=== PATIENT | female | born 1970 | race Caucasian/White ===

== ENCOUNTER 2023-03-28 14:00 | Outpatient (RCR) | payer OTHER, SELFPAY | END 2023-06-20 13:48 | disposition home or self-care (01) | LOC: HO.PT 14:00 | PROVIDERS: PCP Family Medicine; Visit Provider Podiatrist | DX: M76.822 Posterior tibial tendinitis, left leg (principal) | CPT/HCPCS: 97035; 97110; 97161 ==

== ENCOUNTER 2023-04-08 06:29 | Inpatient (IN) | payer OTHER, SELFPAY ==
[2023-04-08] VITALS (7 sets, daily range): BP systolic 109–132; BP diastolic 62–83; PULSE 86–102; RESP 16–20; TEMP 36.4–37.2; O2SAT 87–95; BMI 30.1; BMI 29.9
--- NOTE | ~2023-04-08 | US_ITS ---
EXAMINATION: US VENOUS ULTRASOUND WITH DOPPLER LOWER EXTREMITY, BILATERAL CLINICAL INFORMATION: Lower extremity edema and swelling. COMPARISON: None available. TECHNIQUE: Ultrasound of the deep veins is performed from the hip to the calf with compression sonography and color and pulse Doppler assessment. Spectral analysis with color-flow imaging is performed. FINDINGS: RIGHT: There is normal venous compression and respiratory variation and augmented flow. The visualized common femoral vein, superficial femoral vein, profunda femoral vein, popliteal vein, and the trifurcation region shows no evidence of deep venous thrombosis. No right popliteal cyst. The subcutaneous soft tissues are unremarkable. LEFT: Positive partially occlusive thrombus is seen distally in the left popliteal vein. Occlusive thrombus is seen in the left posterior tibial vein. The left peroneal vein was suboptimally visualized. The left common femoral, profunda femoral and femoral veins are patent. The proximal segment of the left popliteal vein is patent as well. No left popliteal cyst. The subcutaneous soft tissues are unremarkable. US/US venous duplex LE BI IMPRESSION: 1. Positive deep venous thrombosis in the distal left popliteal and posterior tibial veins. 2. No evidence for deep venous thrombosis in the visualized veins of the right lower extremity.
--- NOTE | ~2023-04-08 | XR_ITS ---
EXAMINATION: XR CHEST CLINICAL INFORMATION: Shortness of breath COMPARISON: None available. TECHNIQUE: Frontal portable view of the chest was obtained. FINDINGS: Devices overlie the patient. The cardiac size is within normal limits. No mediastinal or hilar mass. The central vessels are prominent but distinct. There is no edema consolidation or major zone of atelectasis. No pleural fluid or pneumothorax No suspicious focal bony lesion. XR/XR chest 1V IMPRESSION: No pneumonia or edema.
--- NOTE | ~2023-04-08 | CT_ITS ---
EXAMINATION: CT ANGIOGRAM OF THE CHEST WITH AND WITHOUT CONTRAST (CT PULMONARY ANGIOGRAM FOR PE) CLINICAL INFORMATION: Positive D-dimer, shortness of breath. COMPARISON: None available. TECHNIQUE: Prior to contrast administration, noncontrast localization images were obtained. Subsequently, multidetector volumetric imaging was performed from the thoracic inlet to below the diaphragms following the administration of 80 mL Omnipaque 350 intravenous contrast. No contrast reaction reported Sagittal, coronal, and MIP oblique sagittal reformatted images were obtained on the CT workstation, uploaded to PACS, and reviewed. This CT examination was performed using dose optimization techniques as appropriate, variously including the following: *Automated exposure control *Adjustment of mA and/or kV according to patient size (this includes techniques or standardized protocols for targeted exams where dose is matched to indication/reason for exam; i.e. extremities or head) *Use of iterative reconstruction technique Total exam dose-length product 264 mGy-cm FINDINGS: QUALITY OF STUDY/CONTRAST BOLUS: Satisfactory. PULMONARY ARTERIES: Multiple large filling defects are seen extending from the levels of the distal main pulmonary arteries into segmental and subsegmental branches most pronounced in the right lower lobe. THORACIC AORTA: No aneurysm. LUNGS/PLEURA/AIRWAYS: No focal consolidation, nodules or masses. MEDIASTINUM: Normal heart size. No pericardial effusion. No hilar or mediastinal lymphadenopathy. No evidence of septal bowing or right heart strain. CORONARY ARTERY CALCIFICATION: None visualized on this study. CHEST WALL/AXILLA: No axillary or internal mammary lymphadenopathy. OSSEOUS STRUCTURES: No acute or suspicious osseous abnormality. UPPER ABDOMEN: Unremarkable. No reflux of contrast into the hepatic veins to suggest elevated right heart pressures. CT/CT angio chest PE protocol IMPRESSION: 1. Multiple large pulmonary emboli bilaterally, right greater than left. VTE: positive
[2023-04-08 07:42] LABS: MANUAL DIFF FLAG NO
[2023-04-08 07:43] LABS: Basophils Percent Auto 0.4 % (0-2); Eosinophils Absolute Auto 0.1 X10*3/uL (0.0-0.4); Eosinophils Percent Auto 1.3 % (0-4); Hemoglobin 13.7 g/dl (12.0-16.0); Imm Gran Abs Auto 0.02 X10*3/uL (0.00-0.03); Imm Gran Pct Auto 0.2 % (0.0-0.4); Lymphocytes Absolute Auto 2.2 X10*3/uL (1.2-4.9); Lymphocytes Percent Auto 22.8 % (20-40); Mean Corpuscular HGB Conc 34.3 g/dl (31.0-35.0); Mean Corpuscular Hemoglobin 34.3 pg (27.0-33.0); Mean Platelet Volume 9.9 fL (9.4-12.3); Monocytes Absolute Auto 0.7 X10*3/uL (0.1-1.2); Neutrophils Absolute Auto 6.5 x10*3/uL (2.0-8.3); Neutrophils Percent Auto 68.3 % (45-73); Platelet Count 260 X10*3/uL (160-400); Red Cell Distribution Width 11.9 % (11.0-16.0); White Blood Count 9.6 X10*3/uL (4.8-10.8)
[2023-04-08 07:49] LABS: D Dimer High Sensitivity 2955 NG/ML
[2023-04-08 07:57] LABS: COVID-19 Test Negative (Negative); IDNOW Serial# 08D9AD1C
[2023-04-08 07:58] LABS: Alanine Aminotransferase 13 U/L (0-31); Albumin Level 3.6 g/dL (3.5-5.0); Alkaline Phosphatase 74 U/L (39-117); Anion Gap 14 (12-20); Aspartate Amino Transferase 15 U/L (5-31); Bilirubin Total 0.4 mg/dL (0.0-1.0); Blood Urea Nitrogen 12 mg/dL (9-16); Calcium 8.9 mg/dL (8.4-10.2); Carbon Dioxide 22 mmol/L (22-29); Chloride 108 mmol/L (96-108); Creatinine Clr Calc Pharmacy 80.8; Estimated Glomerular Filt Rate > 60; Glucose Random 104 mg/dL (60-115); Magnesium 2.1 mg/dL (1.6-2.6); Potassium 4.2 mmol/L (3.3-5.1); Sodium 140 mmol/L (135-145); Total Protein 6.9 g/dL (6.5-8.0)
[2023-04-08 08:14] LABS: Troponin-I High Sensitivity 74.5 ng/L (<3.5-17.0)
--- NOTE | 2023-04-08 08:17 | ED_ITS ---
HPI - General Adult General Chief complaint: Dyspnea Stated complaint: sob Time Seen by Provider: 04/08/23 06:43 Source: patient Mode of arrival: ambulatory Limitations: no limitations History of Present Illness HPI narrative: 52-year-old female presents with shortness of breath with exertion, chest pressure for the past 3 days worsening. Patient reports that each time she has to ambulate or exert herself she feels like she is running a marathon. Patient reports that this is never happened to her before. Reports a substernal chest pressure, nonradiating, says it is more an aching pain. Patient reports she has trouble catching her breath even with simple tasks such as going up the stairs, reports about a week ago she had an upper respiratory infection and was seen by her primary care provider. And on Sunday, patient had a normal chest x-ray. Patient reports she used to be a former smoker however no longer smoking, she is prescribed hormones by her primary care provider, no recent travel or lower extremity edema, no history of malignancy. Related Data Home Medications Medication Instructions Recorded Confirmed calcium carbonate 600 mg-vitamin 1 tab PO DAILY 04/08/23 04/08/23 D3 5 mcg (200 unit) tablet desogestrel 0.15 mg-ethinyl 1 tab PO DAILY 04/08/23 04/08/23 estradiol 0.03 mg tablet (Apri) multivitamin 1 tab PO DAILY 04/08/23 04/08/23 Allergies Allergy/AdvReac Type Severity Reaction Status Date / Time No Known Allergies Allergy Unverified 07/15/20 16:28 [No Known Allergies*] Review of Systems Review of Systems: Constitutional : No Weight loss, No Fever, No Chills, No Fatigue, No Malaise ENT/Mouth : No sore throat, No Rhinorrhea Eyes: No Eye Pain, No Swelling, No Redness Cardiovascular : + Chest Pain, + SOB, + Dyspnea on Exertion, No Orthopnea, No Edema, No Palpitations Respiratory : No Cough, No Sputum, No Wheezing Gastrointestinal : No Nausea, No Vomiting, No Diarrhea, No Constipation, No abdominal Pain, No Hematochezia, No Melena Genitourinary : No Dysuria, No Urinary Frequency, No Hematuria, Musculoskeletal : No joint pain, No Myalgias, No Joint Swelling Skin : No Skin Lesions, No rash Neuro : No Weakness, No Numbness, No Dizziness, No Headache Psych : No Anxiety/Panic, No Depression All other systems reviewed and are negative Yes all other systems are reviewed and are negative [facility] Past Medical History Attestation statement: The following information was validated with the patient. Source: old records reviewed and nursing notes reviewed Social History Social History Alcohol intake: never Smoked in Last 30 Days: No Use of substances other than those prescribed or required for medical reasons: No Advance Directives: No Patient : No Physical Exam ED Vital Signs: Vital Signs - 24 hr 04/08/23 06:46 04/08/23 07:52 04/08/23 09:56 Temperature 98.5 F 98.3 F Pulse Rate 102 H 89 Respiratory Rate 20 16 Blood Pressure 109/83 109/69 Pulse Oximetry 93 93 87 L Oxygen Delivery Method Room Air Room Air Room Air BMI result Body Mass Index 29.9 vss Appearance: Alert.? Oriented X3.? No acute distress.? Head: Normocephalic, atraumatic, no step-offs or deformities Eyes: Pupils equal, round and reactive to light.? ENT: Pharynx normal.? Neck: Normal inspection.? Neck supple.? CVS: Normal heart rate and rhythm.? Pulses normal.? Respiratory: No respiratory distress.? Breath sounds normal.? Abdomen: Soft and nontender.? Skin: Skin warm and dry.? Normal skin color.? Normal skin turgor.? Extremities: No lower extremity edema.? No calf ttp, negative Dmitry bilaterally. 5/5 strength to bilateral upper and lower extremities Neuro: Oriented X 3.? No motor deficit.? No sensory deficit. CN 2-12 intact Course Reevaluation(s) Reevaluation #1: CBC appears to be within normal limits. Chemistry with no acute findings requiring intervention. Troponin 74.5, EKG nonischemic, 2nd troponin ordered. D-dimer markedly elevated, CTA ordered, concerned for blood clot. UA without infection. COVID negative. Time: 09:08 Reevaluation #2: CT of chest with multiple large pulmonary emboli bilaterally right greater than left. VTE positive. Ambulatory oxygen saturation 87% on room air. Patient complaining of shortness of breath with ambulation. Will start patient on hepa rin. Time: 09:58 Reevaluation #3: Patient will be admitted by the hospitalist Dr. Costa. US b/l LE duplex pending. Additional Reevaluation(s): Positive venous duplex left lower extremity. Medications Administered Discontinued Medications Generic Name Dose Route Start Last Admin Trade Name Naren PRN Reason Stop Dose Admin Iohexol 100 ml 04/08/23 08:52 04/08/23 08:53 Iohexol 350 Mg/Ml 100 Ml Infus..Btl IV 04/08/23 08:53 100 ml ONCE ONE Administration Medical Decision Making Medical Decision Making [facility] Narrative: 0737 52-year-old female presents for evaluation chest pressure and shortness of breath on exertion going on past 3 days worsening. Physical examination benign. Negative Dmitry bilaterally. Vital signs stable initially on my exam patient is slightly tachycardic. Concerns for possible pulmonary embolism, angina. I do not suspect dissection, CHF, pneumonia, ACS. Unlikely endocarditis, myocarditis or pericarditis. Plan labs, imaging, viral testing. Differential Diagnosis Differential Diagnoses: The differential diagnosis associated with the presentation includes Concerns for possible pulmonary embolism, less likely ACS. I do not suspect dissection, CHF, pneumonia. Unlikely endocarditis, myocarditis or pericarditis. Admission/Observation Consideration of admission/observation: Escalation of care including admission/observation considered Lab Data [facility] Lab Attestation statement: I reviewed the patient's lab results. 04/08/23 07:37 04/08/23 07:37 Labs: Lab Results 04/08/23 04/08/23 04/08/23 Range/Units 07:37 07:37 07:37 WBC 9.6 (4.8-10.8) X10*3/uL RBC 4.00 L (4.20-5.50) X10*6/uL Hgb 13.7 (12.0-16.0) g/dl Hct 40.0 (37.0-47.0) % MCV 100.0 H (80.0-98.0) fL MCH 34.3 H (27.0-33.0) pg MCHC 34.3 (31.0-35.0) g/dl RDW 11.9 (11.0-16.0) % Plt Count 260 (160-400) X10*3/uL MPV 9.9 (9.4-12.3) fL Immature Gran % (Auto) 0.2 (0.0-0.4) % Neut % (Auto) 68.3 (45-73) % Lymph % (Auto) 22.8 (20-40) % [place] % (Auto) 7.0 (2-11) % Eos % (Auto) 1.3 (0-4) % Baso % (Auto) 0.4 (0-2) % Lymph # (Auto) 2.2 (1.2-4.9) X10*3/uL [place] # (Auto) 0.7 (0.1-1.2) X10*3/uL Eos # (Auto) 0.1 (0.0-0.4) X10*3/uL Baso # (Auto) 0.0 (0.0-0.2) X10*3/uL Abs Immat Gran (auto) 0.02 (0.00-0.03) X10*3/uL Absolute Neuts (auto) 6.5 (2.0-8.3) x10*3/uL Absolute Nucleated RBC 0.000 (0.0-0.012) X10*3/uL Nucleated RBC % (auto) 0.0 (0.0-0.2) /100WBC PT (10.0-13.1) SEC INR (0.9-1.1) D-Dimer High Sensitivty NG/ML Sodium (135-145) mmol/L Potassium (3.3-5.1) mmol/L Chloride (96-108) mmol/L Carbon Dioxide (22-29) mmol/L Anion Gap (12-20) BUN (9-16) mg/dL Creatinine (0.5-1.4) mg/dL Estim Creat Clear Calc Estimated GFR Random Glucose (60-115) mg/dL Calcium (8.4-10.2) mg/dL Magnesium (1.6-2.6) mg/dL Total Bilirubin (0.0-1.0) mg/dL AST (5-31) U/L ALT (0-31) U/L Alkaline Phosphatase (39-117) U/L Troponin I High Sens 74.5 H* (<3.5-17.0) ng/L B-Natriuretic Peptide 260 H (<100) pg/mL Total Protein (6.5-8.0) g/dL Albumin (3.5-5.0) g/dL Beta HCG, Quant mIU/mL Urine Color Urine Appearance Urine pH (5.0-9.0) Ur Specific [place] (1.005-1.025) Urine Protein (Neg-Trace) mg/dL Urine Glucose (UA) (Negative) mg/dL Urine Ketones (Negative) mg/dL Urine Blood (Negative) Urine Nitrite (Negative) Ur Leukocyte Esterase (Negative) Urine RBC (0-2) /HPF Urine WBC (0-5) /HPF Ur Squamous Epith Cells (0-2) /HPF Urine Bacteria (None Seen) Hyaline Casts (0-2) /LPF COVID-19 (JACKELINE) (Negative) COVID-19 Clin Com 04/08/23 04/08/23 04/08/23 Range/Units 07:37 07:37 07:37 WBC (4.8-10.8) X10*3/uL RBC (4.20-5.50) X10*6/uL Hgb (12.0-16.0) g/dl Hct (37.0-47.0) % MCV (80.0-98.0) fL MCH (27.0-33.0) pg MCHC (31.0-35.0) g/dl RDW (11.0-16.0) % Plt Count (160-400) X10*3/uL MPV (9.4-12.3) fL Immature Gran % (Auto) (0.0-0.4) % Neut % (Auto) (45-73) % Lymph % (Auto) (20-40) % [place] % (Auto) (2-11) % Eos % (Auto) (0-4) % Baso % (Auto) (0-2) % Lymph # (Auto) (1.2-4.9) X10*3/uL [place] # (Auto) (0.1-1.2) X10*3/uL Eos # (Auto) (0.0-0.4) X10*3/uL Baso # (Auto) (0.0-0.2) X10*3/uL Abs Immat Gran (auto) (0.00-0.03) X10*3/uL Absolute Neuts (auto) (2.0-8.3) x10*3/uL Absolute Nucleated RBC (0.0-0.012) X10*3/uL Nucleated RBC % (auto) (0.0-0.2) /100WBC PT (10.0-13.1) SEC INR (0.9-1.1) D-Dimer High Sensitivty 2955 NG/ML Sodium 140 (135-145) mmol/L Potassium 4.2 (3.3-5.1) mmol/L Chloride 108 (96-108) mmol/L Carbon Dioxide 22 (22-29) mmol/L Anion Gap 14 (12-20) BUN 12 (9-16) mg/dL Creatinine 0.82 (0.5-1.4) mg/dL Estim Creat Clear Calc 80.8 Estimated GFR > 60 Random Glucose 104 (60-115) mg/dL Calcium 8.9 (8.4-10.2) mg/dL Magnesium 2.1 (1.6-2.6) mg/dL Total Bilirubin 0.4 (0.0-1.0) mg/dL AST 15 (5-31) U/L ALT 13 (0-31) U/L Alkaline Phosphatase 74 (39-117) U/L Troponin I High Sens (<3.5-17.0) ng/L B-Natriuretic Peptide (<100) pg/mL Total Protein 6.9 (6.5-8.0) g/dL Albumin 3.6 (3.5-5.0) g/dL Beta HCG, Quant < 2 mIU/mL Urine Color Urine Appearance Urine pH (5.0-9.0) Ur Specific [place] (1.005-1.025) Urine Protein (Neg-Trace) mg/dL Urine Glucose (UA) (Negative) mg/dL Urine Ketones (Negative) mg/dL Urine Blood (Negative) Urine Nitrite (Negative) Ur Leukocyte Esterase (Negative) Urine RBC (0-2) /HPF Urine WBC (0-5) /HPF Ur Squamous Epith Cells (0-2) /HPF Urine Bacteria (None Seen) Hyaline Casts (0-2) /LPF COVID-19 (JACKELINE) Negative (Negative) COVID-19 Clin Com See Note 04/08/23 04/08/23 Range/Units 08:14 08:15 WBC (4.8-10.8) X10*3/uL RBC (4.20-5.50) X10*6/uL Hgb (12.0-16.0) g/dl Hct (37.0-47.0) % MCV (80.0-98.0) fL MCH (27.0-33.0) pg MCHC (31.0-35.0) g/dl RDW (11.0-16.0) % Plt Count (160-400) X10*3/uL MPV (9.4-12.3) fL Immature Gran % (Auto) (0.0-0.4) % Neut % (Auto) (45-73) % Lymph % (Auto) (20-40) % [place] % (Auto) (2-11) % Eos % (Auto) (0-4) % Baso % (Auto) (0-2) % Lymph # (Auto) (1.2-4.9) X10*3/uL [place] # (Auto) (0.1-1.2) X10*3/uL Eos # (Auto) (0.0-0.4) X10*3/uL Baso # (Auto) (0.0-0.2) X10*3/uL Abs Immat Gran (auto) (0.00-0.03) X10*3/uL Absolute Neuts (auto) (2.0-8.3) x10*3/uL Absolute Nucleated RBC (0.0-0.012) X10*3/uL Nucleated RBC % (auto) (0.0-0.2) /100WBC PT 11.0 (10.0-13.1) SEC INR 1.0 (0.9-1.1) D-Dimer High Sensitivty NG/ML Sodium (135-145) mmol/L Potassium (3.3-5.1) mmol/L Chloride (96-108) mmol/L Carbon Dioxide (22-29) mmol/L Anion Gap (12-20) BUN (9-16) mg/dL Creatinine (0.5-1.4) mg/dL Estim Creat Clear Calc Estimated GFR Random Glucose (60-115) mg/dL Calcium (8.4-10.2) mg/dL Magnesium (1.6-2.6) mg/dL Total Bilirubin (0.0-1.0) mg/dL AST (5-31) U/L ALT (0-31) U/L Alkaline Phosphatase (39-117) U/L Troponin I High Sens (<3.5-17.0) ng/L B-Natriuretic Peptide (<100) pg/mL Total Protein (6.5-8.0) g/dL Albumin (3.5-5.0) g/dL Beta HCG, Quant mIU/mL Urine Color Yellow Urine Appearance Clear Urine pH 6.5 (5.0-9.0) Ur Specific [place] 1.020 (1.005-1.025) Urine Protein Negative (Neg-Trace) mg/dL Urine Glucose (UA) Negative (Negative) mg/dL Urine Ketones Trace (Negative) mg/dL Urine Blood Small (1+) H (Negative) Urine Nitrite Negative (Negative) Ur Leukocyte Esterase Negative (Negative) Urine RBC 11-20 H (0-2) /HPF Urine WBC 0-5 (0-5) /HPF Ur Squamous Epith Cells 3-5 (0-2) /HPF Urine Bacteria None Seen (None Seen) Hyaline Casts 0-2 (0-2) /LPF COVID-19 (JACKELINE) (Negative) COVID-19 Clin Com Independent Interpretation I performed an independent interpretation of an: Plain X-Ray (XR/XR chest 1V IMPRESSION: No pneumonia or edema. ) and CT Scan (CT/CT angio chest PE protocol IMPRESSION: 1. Multiple large pulmonary emboli bilaterally, right greater than left. VTE: positive) Radiology Impression Discussion of test interpretation with radiology: I have reviewed the radiologist's reading. Core Measures AMI core measures followed: Yes Measure exclusions: not indicated Critical Care Time Critical Care Time Critical Care Time: Yes Total Critical Care Time: 35 Attestation: I attest to this time spent taking care of the patient, obtaining history, physical, reviewing labs, imaging, speaking to my attending Discharge Plan Discharge Clinical Impression: Pulmonary embolism, DVT (deep venous thrombosis) Patient Disposition: Still a Patient
[2023-04-08 08:21] LABS: Appearance Urine Clear; Color Urine Yellow; Glucose Urine UA Negative (Negative); Leukocyte Esterase Urine Negative (Negative); Nitrite Urine Negative (Negative); PH 6.5 (5.0-9.0); UMIC TRIGGER UACC YES; Urine Blood Small (1+) (Negative); Urine Ketones Trace mg/dL (Negative); Urine Protein Negative (Neg-Trace)
[2023-04-08 08:24] LABS: Bacteria Urine None Seen (None Seen); Hyaline Casts Urine 0-2 /LPF (0-2); WBC Urine 0-5 /HPF (0-5)
[2023-04-08 08:27] LABS: HCG Quantitative < 2 mIU/mL
[2023-04-08] MEDS: iohexoL 350 MG/ML 100 ML INFUS..BTL IV (08:53)
--- NOTE | 2023-04-08 10:10 | PHA.MEDREC ---
Pharmacy Consult ? Medication Reconciliation Pharmacy has completed the medication reconciliation. spoke with patient and verified her medications
[2023-04-08 10:36] LABS: B Type Natriuretic Peptide 260 pg/mL (<100)
--- NOTE | 2023-04-08 10:42 | MHC.CM.PN ---
PATIENT IS FULLY INDEPENDENT NO DME OR VNA SHE IS QUITE ACTIVE. PATIENT DROVE SELF HERE SPOUSE IN ROOM CASE MANAGEMENT WILL ADDRESS HCP WHEN APPROPRIATE. NO SERVICES ANTICPATED AT [facility]
--- NOTE | 2023-04-08 10:48 | P.HPHOSP_ITS ---
History of Present Illness Date of Service: 04/08/23 Chief Complaint: Shortness of Breath 52-year-old female on estrogen for post-menopausal symptoms who presents with Dyspnea worse with exertion. About a week ago, she suffered from what appeared to be URI and saw PCP who did chest x-ray that was normal. Unfortunately, she continued to have symptoms of shortness of breath that seem to have become more pronounced, especially with exertion; ambulating feels as if she is running a marathon, and even doing simple task have become more burdensome; she is normally very active and exercise regularly. She has no cough, fever, chills, or recent long trips. She has noticed episodes of tachycardia on her Apple watch. Workup in ED with CT of the chest revealed Multiple large pulmonary emboli bilaterally, right greater than left. and bilateral Lower extremity US shows Positive deep venous thrombosis in the distal left popliteal and posterior tibial veins. She is hemodynamically stable BP 112/76, HR 86; oxygen saturation is normal on room air but dropped to 87% upon ambulation. She's breathing easy. She's started on IV heparin. There is no personal or family history of VTE Review of Systems Review of Systems: Gen: no fever Resp: + sob, no cough CV: no chest, no BARR, no leg edema, no leg GI: No n/v, no abd pain Neuro: No confusion Yes all other systems are reviewed and are negative PMFSH Pertinent family history: No history of VTE Social History Household Members: Family Housing: House Do you presently have visiting nurse or other home services: No Alcohol intake: never Patient Tobacco Use Status: Never used Tobacco Smoked in Last 30 Days: No Use of substances other than those prescribed or required for medical reasons: No Currently Displaying Signs/Symptoms of Drug Intoxication Withdrawal: No Have you been hit, kicked, punched, or otherwise hurt by someone within the past year? If so, by whom?: No Advance Directives: No Do you have thoughts of harming others: None Do you have a plan to hurt others: No Plan Recently lost weight without trying: No Nutrition Risks: No Nutritional Risk Patient : No : No Poor oral hygiene: No service: No Current occupational status: employed Meds Allergies Allergy/AdvReac Type Severity Reaction Status Date / Time No Known Allergies Allergy Unverified 07/15/20 16:28 [No Known Allergies*] Active Medications: Current Medications Acetaminophen (Acetaminophen 325 Mg Tablet) 650 mg PO Q6H PRN PRN Reason: Pain, Mild (Pain Scale 1-3) Calcium Carbonate/Cholecalciferol (Calcium + Vitamin D 250 Mg Tablet) 500 mg PO DAILY [facility] Heparin Sodium (Porcine) (Heparin Sodium,Porcine 5,000 Unit/Ml Vial) 3,100 unit 40 unit/kg (3100 unit) IVPUSH PROTOCOL BOLUS PRN; Protocol PRN Reason: 40 unit/kg - Heparin Protocol Heparin Sodium (Porcine) (Heparin Sodium,Porcine 5,000 Unit/Ml Vial) 6,100 unit 80 unit/kg (6100 unit) IVPUSH PROTOCOL BOLUS PRN; Protocol PRN Reason: 80 unit/kg - Heparin Protocol Heparin Sodium/Sodium Chloride (Heparin Sodium,Porcine/1/2ns) 25,000 unit in 250 mls @ 0 mls/hr IVCONT .Q0M VERENICE; Protocol Magnesium Hydroxide (Milk Of Magnesia 30 Ml Oral.Susp) 30 ml PO DAILY PRN PRN Reason: Constipation Melatonin (Melatonin 3 Mg Tablet) 6 mg PO BEDTIME PRN PRN Reason: Insomnia Multivitamins/Vitamin C (Multivitamin Tablet) 1 tab PO DAILY [facility] Ondansetron HCl (Ondansetron Hcl 4 Mg/2 Ml Vial) 4 mg IVPUSH Q8H PRN PRN Reason: Nausea and Vomiting Pharmacy Consult (Consult Rx Perform Med Rec) 1 each MISCELLANE ONCE PRN PRN Reason: Consult order Sodium Chloride (0.9 % Sodium Chloride Flush 3 Ml Syringe) [address] [facility] Zolpidem Tartrate (Zolpidem Tartrate 5 Mg Tablet) 5 mg PO BEDTIME PRN PRN Reason: Insomnia Home Medications Medication Instructions Recorded Confirmed Last Taken Type calcium carbonate 600 mg-vitamin 1 tab PO DAILY 04/08/23 04/08/23 Unknown History D3 5 mcg (200 unit) tablet desogestrel 0.15 mg-ethinyl 1 tab PO DAILY 04/08/23 04/08/23 Unknown History estradiol 0.03 mg tablet (Apri) multivitamin 1 tab PO DAILY 04/08/23 04/08/23 Unknown History Physical Exam Vital Signs and Narrative: Vital Signs: Last Vital Signs Temp 97.5 F 04/08/23 10:44 Pulse 86 04/08/23 10:44 Resp 16 04/08/23 10:44 BP 112/76 04/08/23 10:44 Pulse Ox 95 04/08/23 10:44 O2 Del Method Room Air 04/08/23 10:44 BMI result Body Mass Index 29.9 Const: Other: General: AO X 3, no acute distress Resp: CTA bilateral CVS: S1,S2,RRR GI: +BS, NT, no distention Skin: No rash extremities: symetric, lo calve tenderness Neuro: motor grossly intact Psych: appropriate affect Results Labs 04/08/23 07:37 04/08/23 07:37 Labs: Laboratory Results - last 24 hr 04/08/23 04/08/23 04/08/23 07:37 07:37 07:37 MCV 100.0 H MCH 34.3 H MCHC 34.3 RDW 11.9 Plt Count 260 MPV 9.9 Immature Gran % (Auto) 0.2 Neut % (Auto) 68.3 Lymph % (Auto) 22.8 [place] % (Auto) 7.0 Eos % (Auto) 1.3 Baso % (Auto) 0.4 Lymph # (Auto) 2.2 [place] # (Auto) 0.7 Eos # (Auto) 0.1 Baso # (Auto) 0.0 Abs Immat Gran (auto) 0.02 Absolute Neuts (auto) 6.5 Absolute Nucleated RBC 0.000 Nucleated RBC % (auto) 0.0 PT INR D-Dimer High Sensitivty Anion Gap Estim Creat Clear Calc Estimated GFR Random Glucose Calcium Magnesium Total Bilirubin AST ALT Alkaline Phosphatase Troponin I High Sens 74.5 H* B-Natriuretic Peptide 260 H Total Protein Albumin Beta HCG, Quant Urine Color Urine Appearance Urine pH Ur Specific [place] Urine Protein Urine Glucose (UA) Urine Ketones Urine Blood Urine Nitrite Ur Leukocyte Esterase Urine RBC Urine WBC Ur Squamous Epith Cells Urine Bacteria Hyaline Casts COVID-19 (JACKELINE) COVID-19 Clin Com 04/08/23 04/08/23 04/08/23 07:37 07:37 07:37 MCV MCH MCHC RDW Plt Count MPV Immature Gran % (Auto) Neut % (Auto) Lymph % (Auto) [place] % (Auto) Eos % (Auto) Baso % (Auto) Lymph # (Auto) [place] # (Auto) Eos # (Auto) Baso # (Auto) Abs Immat Gran (auto) Absolute Neuts (auto) Absolute Nucleated RBC Nucleated RBC % (auto) PT INR D-Dimer High Sensitivty 2955 Anion Gap 14 Estim Creat Clear Calc 80.8 Estimated GFR > 60 Random Glucose 104 Calcium 8.9 Magnesium 2.1 Total Bilirubin 0.4 AST 15 ALT 13 Alkaline Phosphatase 74 Troponin I High Sens B-Natriuretic Peptide Total Protein 6.9 Albumin 3.6 Beta HCG, Quant < 2 Urine Color Urine Appearance Urine pH Ur Specific [place] Urine Protein Urine Glucose (UA) Urine Ketones Urine Blood Urine Nitrite Ur Leukocyte Esterase Urine RBC Urine WBC Ur Squamous Epith Cells Urine Bacteria Hyaline Casts COVID-19 (JACKELINE) Negative COVID-19 Clin Com See Note 04/08/23 04/08/23 08:14 08:15 MCV MCH MCHC RDW Plt Count MPV Immature Gran % (Auto) Neut % (Auto) Lymph % (Auto) [place] % (Auto) Eos % (Auto) Baso % (Auto) Lymph # (Auto) [place] # (Auto) Eos # (Auto) Baso # (Auto) Abs Immat Gran (auto) Absolute Neuts (auto) Absolute Nucleated RBC Nucleated RBC % (auto) PT 11.0 INR 1.0 D-Dimer High Sensitivty Anion Gap Estim Creat Clear Calc Estimated GFR Random Glucose Calcium Magnesium Total Bilirubin AST ALT Alkaline Phosphatase Troponin I High Sens B-Natriuretic Peptide Total Protein Albumin Beta HCG, Quant Urine Color Yellow Urine Appearance Clear Urine pH 6.5 Ur Specific [place] 1.020 Urine Protein Negative Urine Glucose (UA) Negative Urine Ketones Trace Urine Blood Small (1+) H Urine Nitrite Negative Ur Leukocyte Esterase Negative Urine RBC 11-20 H Urine WBC 0-5 Ur Squamous Epith Cells 3-5 Urine Bacteria None Seen Hyaline Casts 0-2 COVID-19 (JACKELINE) COVID-19 Clin Com Imaging Radiologist's Impressions: Impressions Chest X-Ray 04/08/23 07:29 IMPRESSION: No pneumonia or edema. Chest CTA 04/08/23 08:57 IMPRESSION: 1. Multiple large pulmonary emboli bilaterally, right greater than left. VTE: positive Assessment and Plan (1) Acute hypoxemic respiratory failure: Status: Acute (2) Pulmonary embolism: Status: Acute Plan 52 year female on estrogen replacement therapy here with acute pulmonary embolis and DVT, concern that it maybe caused by extrogen use. Acute bilateral pulmonary embolism and distal left popliteal andposterior tibial veins DVT, hemodynamically, nl O2 on room air, and at this point does not meet criteria for thrombolytic therapy -Starting IV heparin, to get echocardiogram tomorrow, hematology consult, will need Hypercoagulable work up. Stop extrogen. . Consider vascular consullt Acute Hypoxic respriatory failure with exertion--d/t above, O2 as as need to Keep O2 sat around 95% Need for inaptient: Acute high burden Pulmonary Embolism, DVT and at high risk for hemodynamic coloapase Time Spent With Patient Time: Total time managing care of this patient today ____ minutes. Quality Stroke Does the patient have a stroke diagnosis?: No VTE Prior VTE?: No VTE Risk Level:: Medical - moderate - high VTE Device Contraindication: Treatment Not Indicated VTE Drug Contraindication: N/A - Med Ordered
[2023-04-08 10:49] LABS: Hemoglobin 14.4 g/dl (12.0-16.0); Mean Corpuscular HGB Conc 34.3 g/dl (31.0-35.0); Mean Corpuscular Hemoglobin 34.6 pg (27.0-33.0); Mean Platelet Volume 9.9 fL (9.4-12.3); Platelet Count 294 X10*3/uL (160-400); Red Blood Count 4.16 X10*6/uL (4.20-5.50); Red Cell Distribution Width 11.9 % (11.0-16.0); White Blood Count 10.7 X10*3/uL (4.8-10.8)
[2023-04-08 10:55] LABS: INTERNATIONAL NORM RATIO 0.9 (0.9-1.1); Prothrombin Time 10.8 SEC (10.0-13.1)
[2023-04-08 10:58] LABS: PTT Heparin Drip 27.9 SEC (53-77.9)
[2023-04-08] MEDS: Heparin Sodium,Porcine 5,000 UNIT/ML VIAL 6200 UNIT IVPUSH (11:14)
[2023-04-08] MEDS: Heparin Sodium,Porcine/1/2NS 25,000 UNIT/250 ML IV.SOLN 10.72 UNIT IVCONT (11:16)
[2023-04-08 11:54] LABS: Troponin-I High Sensitivity 75.5 ng/L (<3.5-17.0)
[2023-04-08 17:35] LABS: PTT Heparin Drip 48.5 SEC (53-77.9)
[2023-04-08] MEDS: Heparin Sodium,Porcine 5,000 UNIT/ML VIAL 3100 UNIT IVPUSH (17:58)
[2023-04-09 00:54] LABS: PTT Heparin Drip 59.6 SEC (53-77.9)
[2023-04-09 04:00] VITALS: BP 121/70; PULSE 79; RESP 18; TEMP 37.1; O2SAT 93
[2023-04-09 06:37] LABS: INTERNATIONAL NORM RATIO 0.9 (0.9-1.1); Prothrombin Time 10.7 SEC (10.0-13.1)
[2023-04-09 06:39] LABS: PTT Heparin Drip 54.5 SEC (53-77.9)
[2023-04-09 06:52] LABS: Hematocrit 40.5 % (37.0-47.0); Hemoglobin 13.7 g/dl (12.0-16.0); Mean Corpuscular HGB Conc 33.8 g/dl (31.0-35.0); Mean Corpuscular Hemoglobin 34.2 pg (27.0-33.0); Mean Platelet Volume 10.2 fL (9.4-12.3); Platelet Count 264 X10*3/uL (160-400); Red Blood Count 4.01 X10*6/uL (4.20-5.50); Red Cell Distribution Width 11.9 % (11.0-16.0); White Blood Count 8.2 X10*3/uL (4.8-10.8)
--- NOTE | 2023-04-09 07:00 | CA_ITS ---
Transthoracic Echocardiogram Patient (Last, First, Middle): Patricia Nieto M Gender: Female Date of : 1970 Age: 52 Procedure Date: 04/09/2023 Procedure Type: Transthoracic Echocardiogram Location: [facility] [place] Height: 160.02 cm Weight: 76.2 kg BSA: 1.80 m2 Heart Rate: 75 bpm BP: 126 / 68 mmHg Integration Director: ELIESER Referring MD: Joni Jaramillo MD Web Producer: Trevin Norton MD Symptoms: Pulmonary embolism Study Quality: Adequate ECG Rhythm: Sinus Conclusions: - 1. Normal LV systolic function with impaired relaxation filling pattern 2. Normal cardiac valvular Dopplers 3. Normal RV systolic pressure with mildly elevated right atrial pressures 4. Upper limits of normal ascending aortic size 5. No pericardial effusion Findings Left Ventricle Normal left ventricular size, thickness, and systolic function. The visually estimated ejection fraction is between 55-60%. Spectral Doppler is indicative of an impaired relaxation filling pattern. E/E prime ratio is between 8 and 15 consistent with indeterminate filling pressures. Right Ventricle Mildly increased right ventricular cavity size. There is normal right ventricular systolic function. Atria Both atria are normal in size. There is lipomatous hypertrophy of the interatrial septum. There is no evidence of interatrial shunt. Aortic Valve Normal aortic valve structure and function. There is no aortic valve stenosis. There is no aortic valve regurgitation. Mitral Valve Normal mitral valve structure and function. There is trace mitral valve regurgitation. There is no mitral valve stenosis. Pulmonic Valve The pulmonic valve is likely normal. There is trace pulmonic valve regurgitation. Tricuspid Valve Normal tricuspid valve structure. There is mild tricuspid valve regurgitation. The right ventricular systolic pressure is normal. The right ventricular systolic pressure is 33 mmHg. Normal right atrial pressure. There is no evidence of pulmonary hypertension. Great Vessels The pulmonary artery was not well visualized. Venous The inferior vena cava is mildly dilated and collapses less than 50% with inspiration. Pericardium/Pleural There is no evidence of pericardial effusion. Prior Study Comparison No prior study available for comparison. Measurements 2D Linear Measurements IVSd: 1.12 0.6-0.9/0.6-1.0 cm LVIDd: 4.36 3.9-5.3/4.2-5.9 cm LVIDd Index: 2.42 2.4-3.2/2.2-3.1 cm/m2 LVIDs: 2.78 2.0-3.6 cm LVPWd: 0.99 0.7-1.1 cm LA Diam: 2.70 2.7-3.8/3.0-4.0 cm LAIDs Index: 1.50 1.5-2.3 cm/m2 LV Mass: 194.82 67-162/88-224 g LV Mass Index: 108.24 43-95/49-115 g/m2 LVOT Diam: 2.20 3.0+(-)1.3 cm 2D Systolic Function EF 4C: 49.00 >55% EF 2C: 60.40 >55% EF BiP: 54.80 >55% Mitral Valve MV Pk E: 0.53 MV PK A: 0.57 MV Decel Time: 238.00 E/A: 0.90 E'Lateral: 15.00 E'Medial: 10.30 E/E' Med: 5.20 E/E' Lat: 3.50 PHT: 70.00 MVA PHT: 3.14 Decel Sebastian: 2.23 Aortic Valve AoV Pk Alton: 1.08 AoV Mn Alton: 0.76 AoV VTI: 0.25 AoV Pk Grad: 5.00 Aov Mn Grad: 3.00 AMANDA Cont.VTI: 3.24 LVOT LVOT Pk Alton: 0.94 LVOT Mn Alton: 0.65 LVOT VTI: 0.21 LVOT Pk Grad: 4.00 LVOT Mn Grad: 2.00 LVOT Diam: 2.20 LVOT Area: 3.80 Diastolic Function MV Pk E: 0.53 MV Pk A: 0.57 E/A: 0.90 E'Medial: 10.30 E/E' Med: 5.20 E' Laterial: 15.00 E/E' Lat: 3.50 Right Ventricle TAPSE (mm): 18.70 TVS' Alton: 7.18 Tricuspid Valve TR Pk Alton: 2.48 TR Pk Grad: 25.00 RA Press: 8.00 RVSP: 33.00 Great Vessels Aorta Sinus of Valsalva: 3.30 2.0-3.5 cm Ao Asc: 3.70 2.1-3.4 cm Pulmonary Valve PV Pk Alton: 0.87 Peak PV Grad: 3.00 Updated in Other Vendor System with Status of Final Trevin Norton MD electronically signed on 04/09/2023 3:11:03 PM with status of Final
[2023-04-09 07:15] VITALS: BP 120/68; PULSE 63; RESP 20; TEMP 36.7; O2SAT 91
[2023-04-09] MEDS: Calcium + Vitamin D 250 MG TABLET 500 MG PO (08:14)
[2023-04-09] MEDS: Heparin Sodium,Porcine/1/2NS 25,000 UNIT/250 ML IV.SOLN 12.26 UNIT IVCONT (08:15)
[2023-04-09] MEDS: Multivitamin TABLET 1 TAB PO (08:15)
--- NOTE | 2023-04-09 08:15 | P.CNHO_ITS ---
Subjective - Subjective Chief complaint: Shortness of breath Patient: new to practice Consult date: 04/09/23 Requesting Physician: Dr. Jaramillo Primary Care Provider: Julio Rangel MD HPI - Consult Narrative Reason for consult: Bilateral pulmonary emboli Narrative: Patricia Nieto is a 52 year old female who has just been diagnosed with DVT and large bilateral pulmonary emboli. She developed symptoms of shortness of breath late last week which progressed over the weekend which prompted her to come to the emergency department. She is very active, exercises regularly and she noticed episodes of tachycardia on her eye watch. She did not have any pain or swelling in her legs. She saw her PCP before upper respiratory symptoms a week ago and she initially thought her symptoms were related to this. Workup in the emergency department with CT angiogram revealed multiple large pulmonary emboli bilaterally, right greater than left. There was also distal left popliteal and posterior tibial vein thrombosis. No prior history of thromboembolism or family history. She has had 3 children without any problems. She is not a smoker. She was started on control pills her per 3 years ago for menopausal symptoms of excessive bleeding as well as mood changes. No history of recent immobilization, surgery or use of steroids. She is up-to-date with mammography and she recently had her 1st colonoscopy at age 52. Her mother is being treated for Waldenstrom's macroglobulinemia in [place]. Father has been treated for prostate cancer. Review of Systems - Constitutional Reports as per HPI, Denies malaise, Denies poor appetite, Denies weight loss - Cardiovascular Reports no additional cardiovascular complaints - Respiratory Reports no additional respiratory complaints, Denies chest congestion, Denies cough, Denies hemoptysis, Reports dyspnea - Gastrointestinal Reports no additional gastrointestinal complaints Oncology Screenings - ECOG Performance Status ECOG Performance Status: 1 [facility] Social History: Social History (Last Reviewed 04/08/23 @ 11:06 by Joni Jaramillo MD) Living Situation History: Household Members: Family Housing: House Do you presently have visiting nurse or other home services: No Alcohol History Details: 1. How often do you have a drink containing alcohol?: a. Never AUDIT-C Alcohol total score: 0 Currently Displaying Signs/Symptoms of Alcohol Withdrawal: No Tobacco History: Patient Tobacco Use Status: Never used Tobacco Smoked in Last 30 Days: No Substance Use History: Use of substances other than those prescribed or required for medical reasons : No Currently Displaying Signs/Symptoms of Drug Intoxication Withdrawal: No Domestic Abuse History: Have you been hit, kicked, punched, or otherwise hurt by someone within the past year? If so, by whom?: No Advance Directives: Advance Directives: No Advance Directives Information Provided: Advance Directives Information Provided comment: Declined Homicidal Assessment: Do you have thoughts of harming others: None Do you have a plan to hurt others: No Plan Nutrition Assessment: Recently lost weight without trying: No Nutrition Risks: No Nutritional Risk Patient : No : No Poor oral hygiene: No Occupation Assessmet: service: No Current occupational status: employed Patient Tobacco Use Status: Never used Tobacco Home Medications and Allergies Current Medications: Current Medications Acetaminophen (Acetaminophen 325 Mg Tablet) 650 mg PO Q6H PRN PRN Reason: Pain, Mild (Pain Scale 1-3) Calcium Carbonate/Cholecalciferol (Calcium + Vitamin D 250 Mg Tablet) 500 mg PO DAILY [facility] Heparin Sodium (Porcine) (Heparin Sodium,Porcine 5,000 Unit/Ml Vial) 3,100 unit 40 unit/kg (3100 unit) IVPUSH PROTOCOL BOLUS PRN; Protocol PRN Reason: 40 unit/kg - Heparin Protocol Last Admin: 04/08/23 17:58 Dose: 3,100 unit Heparin Sodium (Porcine) (Heparin Sodium,Porcine 5,000 Unit/Ml Vial) 6,100 unit 80 unit/kg (6100 unit) IVPUSH PROTOCOL BOLUS PRN; Protocol PRN Reason: 80 unit/kg - Heparin Protocol Heparin Sodium/Sodium Chloride (Heparin Sodium,Porcine/1/2ns) 25,000 unit in 250 mls @ 0 mls/hr IVCONT .Q0M [facility]; Protocol Last Titration: 04/09/23 07:34 Dose: 16 units/kg/hr, 12.26 mls/hr Magnesium Hydroxide (Milk Of Magnesia 30 Ml Oral.Susp) 30 ml PO DAILY PRN PRN Reason: Constipation Melatonin (Melatonin 3 Mg Tablet) 6 mg PO BEDTIME PRN PRN Reason: Insomnia Multivitamins/Vitamin C (Multivitamin Tablet) 1 tab PO DAILY [facility] Ondansetron HCl (Ondansetron Hcl 4 Mg/2 Ml Vial) 4 mg IVPUSH Q8H PRN PRN Reason: Nausea and Vomiting Pharmacy Consult (Consult Rx Perform Med Rec) 1 each MISCELLANE ONCE PRN PRN Reason: Consult order Sodium Chloride (0.9 % Sodium Chloride Flush 3 Ml Syringe) 3 ml IVFLUSH QSHIFT [facility] Last Admin: 04/09/23 07:35 Dose: Not Given Zolpidem Tartrate (Zolpidem Tartrate 5 Mg Tablet) 5 mg PO BEDTIME PRN PRN Reason: Insomnia Home Medications Medication Instructions Recorded Confirmed Type calcium carbonate 600 mg-vitamin 1 tab PO DAILY 04/08/23 04/08/23 History D3 5 mcg (200 unit) tablet desogestrel 0.15 mg-ethinyl 1 tab PO DAILY 04/08/23 04/08/23 History estradiol 0.03 mg tablet (Apri) multivitamin 1 tab PO DAILY 04/08/23 04/08/23 History Allergies Allergy/AdvReac Type Severity Reaction Status Date / Time No Known Allergies Allergy Unverified 07/15/20 16:28 [No Known Allergies*] Physical Exam Vital signs: Vital Signs Temp 98.0 F 04/09/23 07:15 Pulse 63 04/09/23 07:15 Resp 20 04/09/23 07:15 BP 120/68 04/09/23 07:15 Pulse Ox 91 L 04/09/23 07:15 O2 Del Method Room Air 04/09/23 07:15 Intake & Output 04/08/23 04/09/23 04/09/23 18:59 06:59 18:59 Intake Total 72.003 / 559.253 487.25 / 559.253 79.281 / 79.281 Balance 72.003 / 559.253 487.25 / 559.253 79.281 / 79.281 Intake: Intake, Oral Amount 400 / 400 Intake, IV Amount 72.003 / 159.253 87.25 / 159.253 79.281 / 79.281 Heparin Sodium,Porcine/1/2NS 25 72.003 / 159.253 87.25 / 159.253 79.281 / 79.281 ,000 unit In 250 ml @ Per Protocol IVCONT .Q0M [facility] Rx#: [id number] Other: Number of Unmeasured Voids 2 Urine Bathroom Weight 76.6 kg [place] Weight in Grams 87989 Weight 76.6 kg - Constitutional Present: no acute distress - Routine HEENT Exam Head: Present: normal inspection Eye: Present: normal appearance, PERRL - Routine Neck Exam Present: supple. Absent: lymphadenopathy - Routine Respiratory Exam Present: CTAB. Absent: accessory muscle use - Routine Cardiovascular Exam Cardiovascular: Present: RRR, S1, S2 - Routine Abdominal Exam Present: soft - Routine Extremities Exam Absent: calf tenderness, pedal edema Hem/Onc Consult Result - Labs CBC & Chem 7: 04/09/23 06:13 04/08/23 07:37 Labs: Short CBC 04/08/23 04/08/23 04/09/23 Range/Units 10:43 10:43 06:13 WBC 10.7 Cancelled 8.2 (4.8-10.8) X10*3/uL Hgb 14.4 Cancelled 13.7 (12.0-16.0) g/dl Hct 42.0 Cancelled 40.5 (37.0-47.0) % Plt Count 294 Cancelled 264 (160-400) X10*3/uL Urine 04/08/23 Range/Units 08:15 Urine Color Yellow Urine Appearance Clear Urine pH 6.5 (5.0-9.0) Ur Specific [place] 1.020 (1.005-1.025) Urine Protein Negative (Neg-Trace) mg/dL Urine Glucose (UA) Negative (Negative) mg/dL Assessment and Plan Patient Active problem list reviewed?: Yes (1) Pulmonary embolism Status: Acute Assessment and plan: 1. This is a pleasant 52-year-old woman with bilateral pulmonary emboli and left lower extremity DVT. She presented with worsening shortness of breath, CT angio gram on 04/08/23 revealed large filling defects extending from distal main pulmonary arteries into segmental and subsegmental branches most pronounced in the right lower lobe. Bilateral lower extremity Dopplers revealed partially occlusive thrombus distally in the left popliteal vein, occlusive thrombus in the left posterior tibial vein. D-dimer elevated at 2955 NG/mL. Risk factor appears to be hormone therapy, use of control pills. Patient has been started on unfractionated heparin, she reports improvement in symptoms of shortness of breath. Echocardiogram was done today. She is hemod ynamically stable. Her pulse ox is 93% on room air. She probably can be switched to oral anticoa gulation tomorrow. Thrombophilia workup will be submitted at a later date. She was asked to discontinue control pills. If she does have excessive menstrual bleeding, further evaluation for menopausal uterine bleeding is recommended. I have recommended at least 6 months of anticoagulation for now. I thank you for this consultation. I will be happy to follow up with her upon discharge. - Time Spent With Patient Time Spent with Patient (in minutes): 15
--- NOTE | 2023-04-09 11:01 | HO.PM.IMPN ---
Subjective Subjective Date of Service: 04/09/23 Interval History: f/u on acute pulmonary embolism and DVTs She feels, O2 sat is borderline , no chest pain or sob Physical Exam Vital Signs: Vital Signs: Last Vital Signs Temp 98.0 F 04/09/23 07:15 Pulse 63 04/09/23 07:15 Resp 20 04/09/23 07:15 BP 120/68 04/09/23 07:15 Pulse Ox 91 L 04/09/23 07:15 O2 Del Method Room Air 04/09/23 07:15 BMI result Body Mass Index 29.9 Const: Other: General: AO X 3, no acute distress Resp: CTA bilateral CVS: S1,S2,RRR GI: +BS, NT, no distention Skin: No rash Neuro: motor grossly intact Psych: appropriate affect Objective Data Active Medications Acetaminophen (Acetaminophen 325 Mg Tablet) 650 mg PO Q6H PRN PRN Reason: Pain, Mild (Pain Scale 1-3) Calcium Carbonate/Cholecalciferol (Calcium + Vitamin D 250 Mg Tablet) 500 mg PO DAILY [facility] Last Admin: 04/09/23 08:14 Dose: 500 mg Documented By: DEBBIE Heparin Sodium (Porcine) (Heparin Sodium,Porcine 5,000 Unit/Ml Vial) 3,100 unit 40 unit/kg (3100 unit) IVPUSH PROTOCOL BOLUS PRN; Protocol PRN Reason: 40 unit/kg - Heparin Protocol Last Admin: 04/08/23 17:58 Dose: 3,100 unit Documented By: BROEzra Heparin Sodium (Porcine) (Heparin Sodium,Porcine 5,000 Unit/Ml Vial) 6,100 unit 80 unit/kg (6100 unit) IVPUSH PROTOCOL BOLUS PRN; Protocol PRN Reason: 80 unit/kg - Heparin Protocol Heparin Sodium/Sodium Chloride (Heparin Sodium,Porcine/1/2ns) 25,000 unit in 250 mls @ 0 mls/hr IVCONT .Q0M [facility]; Protocol Last Admin: 04/09/23 08:15 Dose: 16 units/kg/hr, 12.26 mls/hr Documented By: DEBBIE Co-signed By: KRIS Magnesium Hydroxide (Milk Of Magnesia 30 Ml Oral.Susp) 30 ml PO DAILY PRN PRN Reason: Constipation Melatonin (Melatonin 3 Mg Tablet) 6 mg PO BEDTIME PRN PRN Reason: Insomnia Multivitamins/Vitamin C (Multivitamin Tablet) 1 tab PO DAILY [facility] Last Admin: 04/09/23 08:15 Dose: 1 tab Documented By: DEBBIE Ondansetron HCl (Ondansetron Hcl 4 Mg/2 Ml Vial) 4 mg IVPUSH Q8H PRN PRN Reason: Nausea and Vomiting Pharmacy Consult (Consult Rx Perform Med Rec) 1 each MISCELLANE ONCE PRN PRN Reason: Consult order Sodium Chloride (0.9 % Sodium Chloride Flush 3 Ml Syringe) 3 ml IVFLUSH QSHIFT [facility] Last Admin: 04/09/23 07:35 Dose: Not Given Documented By: DEBBIE Non-Admin Reason: IV Running Zolpidem Tartrate (Zolpidem Tartrate 5 Mg Tablet) 5 mg PO BEDTIME PRN PRN Reason: Insomnia Labs 04/09/23 06:13 04/08/23 07:37 Labs: Laboratory Results - last 24 hr 04/08/23 04/08/23 04/09/23 10:43 17:17 00:37 MCV MCH MCHC RDW Plt Count MPV Absolute Nucleated RBC Nucleated RBC % (auto) PT INR aPTT Heparin Protocol 48.5 L D 59.6 D Troponin I High Sens 75.5 H* 04/09/23 04/09/23 04/09/23 06:13 06:13 06:13 MCV 101.0 H MCH 34.2 H MCHC 33.8 RDW 11.9 Plt Count 264 MPV 10.2 Absolute Nucleated RBC 0.000 Nucleated RBC % (auto) 0.0 PT 10.7 INR 0.9 aPTT Heparin Protocol 54.5 Troponin I High Sens Assessment and Plan (1) Acute hypoxemic respiratory failure: Status: Acute (2) Pulmonary embolism: Status: Acute Plan 52 year female on estrogen replacement therapy here with acute pulmonary embolis and DVT, concern that it maybe caused by extrogen use. Acute bilateral pulmonary embolism and distal left popliteal andposterior tibial veins DVT, hemodynamically, nl O2 on room air, and at this point does not meet criteria for thrombolytic therapy - IV heparin since 04/08, to get echocardiogram today, hematology consult, will need Hypercoagulable work up. Stop estrogen. . Consider vascular consullt Acute Hypoxic respriatory failure with exertion (87/%)--d/t above, O2 as as needed to Keep O2 sat around 95% Need for inaptient: Acute high burden Pulmonary Embolism, DVT and at high risk for hemodynamic coloapase Time Spent With Patient Time: Total time managing care of this patient today ____ minutes. Quality Stroke Does the patient have a stroke diagnosis?: No VTE Prior VTE?: No VTE Risk Level:: Medical - moderate - high VTE Device Contraindication: Treatment Not Indicated VTE Drug Contraindication: N/A - Med Ordered
[2023-04-09 11:04] VITALS: BP 117/68; PULSE 82; RESP 20; TEMP 36.6; O2SAT 93
--- NOTE | 2023-04-09 14:30 | MHC.CM.PN ---
EMR REVIEWED, PT W/PE AND MULT DVT'S, CM MET W/PT TO FOLLOW-UP W/HCP, PT REPORTS HER WILL SEND HER A COPY OF HER HCP AND SHE WILL EMAIL TO CM, PT ALSO PROVIDED W/VIVIENNE RODRIGESLIT W/BOTH 30DAY FREE TRIAL AND $10 COPAY COUPON FOR COMMERCIAL PLANS. PT REMAINS ON HERPARIN DRIP AND BORDERLINE O2, NO D/C PLANNED FOR TODAY HOWEVER ANTIC 1-2DAYS AND CM WILL CONT TO FOLLOW D/C NEEDS.
[2023-04-09 15:42] VITALS: BP 124/79; PULSE 72; RESP 20; TEMP 36.7; O2SAT 96
[2023-04-09] MEDS: 0.9 % Sodium Chloride Flush 3 ML SYRINGE IVFLUSH (19:33)
[2023-04-09 19:39] VITALS: BP 122/75; PULSE 70; RESP 20; TEMP 36.6; O2SAT 95
[2023-04-09 23:27] VITALS: BP 114/70; PULSE 78; RESP 16; TEMP 37.1; O2SAT 92
[2023-04-10 03:15] VITALS: BP 118/71; PULSE 78; RESP 18; TEMP 36.8; O2SAT 93
[2023-04-10] MEDS: Heparin Sodium,Porcine/1/2NS 25,000 UNIT/250 ML IV.SOLN 12.26 UNIT IVCONT (04:49)
[2023-04-10 06:34] LABS: PTT Heparin Drip 43.2 SEC (53-77.9)
[2023-04-10 06:51] VITALS: BP 125/74; PULSE 67; RESP 20; TEMP 36.5; O2SAT 95
[2023-04-10] MEDS: Multivitamin TABLET 1 TAB PO (07:48)
[2023-04-10] MEDS: Calcium + Vitamin D 250 MG TABLET 500 MG PO (07:48)
[2023-04-10] MEDS: Apixaban 5 MG TABLET 10 MG PO (07:48)
[2023-04-10] MEDS: 0.9 % Sodium Chloride Flush 3 ML SYRINGE IVFLUSH (07:48)
--- NOTE | 2023-04-10 08:53 | MHC.CM.PN ---
PT MEDICALLY CLEARED FOR D/C HOME SELF-CARE ON [employer], PT PROVIDED W/INFORMATIONAL BOOKLET W/DISCOUNT COUPON AND SON/HCP ANA LILIA WILL TRANSPORT. PT ALSO EMAILED CM A COPY OF HCP, HCA IS ADALI MILES [phone] AND ALTERNATE IS SON ANA LILIA [phone], COPY UPLOADED TO [employer] AND WILL BE FAXED TO ED REGISTRATION TO BE UPLOADED IN [employer].
--- NOTE | 2023-04-10 11:24 | PM.DS ---
DS: Providers Provider Date of Service: 04/10/23 Date of admission: 04/08/23 10:39 Date of discharge: 04/10/23 Primary care physician: Julio Rangel MD Consults: 04/08/23 10:46 Consult to Hematology / Oncology Routine Consulting Provider: Cintia Mendoza Reason for consultation: acute PE Has provider been notified: No Attending physician on discharge: Taco Meraz DS: Diagnosis Discharge Diagnosis (1) Pulmonary embolism: Status: Acute DS: Summary Hospital Course Hospital Course: 52-year-old female on estrogen for post-menopausal symptoms who presents with Dyspnea worse with exertion. About a week ago, she suffered from what appeared to be URI and saw PCP? who did? chest x-ray that was normal.? Unfortunately, she continued to have symptoms of shortness of breath that seem to have become more pronounced, especially with exertion; ambulating feels as if she is running a marathon, and even doing simple task have become more burdensome; she? is normally very active and exercise regularly. She has no cough, fever, chills, or recent long trips.? She has noticed episodes of tachycardia on her Apple watch. Workup in ED? with CT of the chest revealed? Multiple large pulmonary emboli bilaterally, right greater than left.? and bilateral Lower extremity US shows? Positive deep venous thrombosis in the distal left popliteal and posterior tibial veins. She is hemodynamically stable? BP 112/76, HR 86; oxygen saturation is normal on room air but dropped to 87% upon ambulation. She's breathing easy. She's started on? IV heparin. There is no personal or family history of VTE. Hospital course and plan : Patient was admitted due to shortness of breath-a phone further workup found to have acute bilateral pulmonary embolism as well as distal left popliteal and posterior tibial vein DVT: Patient was started on IV heparin, seems to be improved significantly currently does not have any dyspnea or any new symptoms, sats are 95% on room air. Patient was seen by Oncology-recommended to continue anticoagulation with Eliquis-further management out patiently. Follow-up with PCP and Oncology outpatient. Patient estrogen was stopped .mild elevated tropnin/bnp possible demand related, echo -Normal LV systolic function with impaired relaxation ?filling pattern?,? Normal cardiac valvular Dopplers ,? Normal RV systolic pressure with mildly elevated right atrial pressures?. ? Discussed with vascular currently- no vascular intervention currently . assessment and plan coordination time spent 50 min. Time Spent with Patient Time attestation: Total time managing care of this patient today ____ minutes. Discharge coordination time: Greater than 30 minutes Quality: Safe Use of Opioids Does Pt have an Active Cancer Diagnosis on the Problem List?: No Quality: Stroke Does the patient have a stroke diagnosis?: No Physical Exam Vital Signs: Vital Signs: Last Vital Signs Temp 97.7 F 04/10/23 06:51 Pulse 67 04/10/23 06:51 Resp 20 04/10/23 06:51 BP 125/74 04/10/23 06:51 Pulse Ox 95 04/10/23 06:51 O2 Del Method Room Air 04/10/23 06:51 BMI result Body Mass Index 29.9 Appearance: Alert.? Oriented X3.? not in distress.? cvs: rrr, [id number] . res: clear to auscultation ,no rhonchii or wheezing abd: no rebound or guarding ,nt, bs present. ext pulses present , no cyanosis. neuro: axo3 , nonfocal. DS: Data Data Completed and Pending Labs on day of discharge: Laboratory Results - last 24 hr 04/10/23 05:52 aPTT Heparin Protocol 43.2 L D Imaging Chest x-ray: Radiologist's impression: ITS Impressions Chest X-Ray 04/08/23 07:29 IMPRESSION: No pneumonia or edema. Chest CTA 04/08/23 08:57 IMPRESSION: 1. Multiple large pulmonary emboli bilaterally, right greater than left. VTE: positive Venous Duplex 04/08/23 10:21 IMPRESSION: 1. Positive deep venous thrombosis in the distal left popliteal and posterior tibial veins. 2. No evidence for deep venous thrombosis in the visualized veins of the right lower extremity. echo: Conclusions: - 1.? Normal LV systolic function with impaired relaxation ? ? ? filling pattern? 2.? Normal cardiac valvular Dopplers ? 3.? Normal RV systolic pressure with mildly elevated right atrial pressures? 4.? Upper limits of normal ascending aortic size ? 5.? No pericardial effusion? Findings Left Ventricle Normal left ventricular size, thickness, and systolic function. The visually estimated ejection fraction is between 55-60%.? Spectral Doppler is indicative of an impaired relaxation filling pattern.? E/E prime ratio is between 8 and 15 consistent with indeterminate filling pressures. Right Ventricle Mildly increased right ventricular cavity size.? There is normal right ventricular systolic function. Atria Both atria are normal in size.? There is lipomatous hypertrophy of the interatrial septum.? There is no evidence of interatrial shunt. Aortic Valve Normal aortic valve structure and function.? There is no aortic valve stenosis.? There is no aortic valve regurgitation. Mitral Valve Normal mitral valve structure and function.? There is trace mitral valve regurgitation.? There is no mitral valve stenosis. Pulmonic Valve The pulmonic valve is likely normal.? There is trace pulmonic valve regurgitation. Tricuspid Valve Normal tricuspid valve structure.? There is mild tricuspid valve regurgitation.? The right ventricular systolic pressure is normal.? The right ventricular systolic pressure is 33 mmHg.? Normal right atrial pressure. There is no evidence of pulmonary hypertension. Great Vessels The pulmonary artery was not well visualized. Venous The inferior vena cava is mildly dilated and collapses less than 50% with inspiration. Pericardium/Pleural There is no evidence of pericardial effusion. Prior Study Comparison No prior study available for comparison. Discharge Plan Discharge Anticipated Discharge Date/Time: 04/10/23 08:29 Patient Disposition: Home, Self-Care Discharge Diagnosis: pulm embolism and dvt Referrals: Cintia Mendoza MD [Physician] - 1 Week (follow up outaptient) Julio Rangel MD [Primary Care Provider] - 1 Week Discharge Medications: New Eliquis 5 mg Tablet 10 mg PO BID Qty: 54 0RF Rx Instructions: please take 2 tablets Eliquis(10 mg) by mouth twice daily until 04/16/23 then switch to 1 tablets Eliquis(10 mg) by mouth twice daily. Continued multivitamin Tablet 1 tab PO DAILY desogestrel-ethinyl estradiol [Apri] 0.15-0.03 mg tablet 1 tab PO DAILY calcium carbonate-vitamin D3 600 mg-5 mcg (200 unit) Tablet 1 tab PO DAILY Discharge Orders: Discharge Order (Routine); Ordered 04/10/23 Ordered By: Taco Meraz Diet: Advance to usual diet Activity on Discharge: As tolerated Stand Alone Forms: Patient Portal Discharge page Care Plan Goals: Patient was admitted due to shortness of breath-a phone further workup found to have acute bilateral pulmonary embolism as well as distal left popliteal and posterior tibial vein DVT: Patient was started on IV heparin, seems to be improved significantly currently does not have any dyspnea or any new symptoms, sats are 95% on room air. Patient was seen by Oncology-recommended to continue anticoagulation with Eliquis-further management out patiently. Follow-up with PCP and Oncology outpatient. Patient estrogen was stopped . Discussed with vascular currently no vascular intervention advised. Health Concerns: If any worsening or shortness of breath or chest pain or any worsening of leg pains or swelling-consider coming to the nearest emergency room for further evaluation. Plan of Treatment: As above. Assessment: As above. Patient Instructions: Pulmonary Embolism (DC), Deep Vein Thrombosis (DC) Discharge Date/Time: 04/10/23 12:18
== END 2023-04-10 12:18 | disposition home or self-care (01) | DRG 197 ==
LOC: HO.ED 10:46 → HO.EDOVER 10:48 → HO.IMC 12:15
PROVIDERS: Physician Assistant; Student in an Organized Health Care Education/Training Program; Admitting Provider Internal Medicine; Emergency Provider Student in an Organized Health Care Education/Training Program; PCP Family Medicine; Visit Provider Internal Medicine
DX: I82.432 Acute embolism and thrombosis of left popliteal vein (principal); I26.99 Other pulmonary embolism without acute cor pulmonale; J96.01 Acute respiratory failure with hypoxia; I82.442 Acute embolism and thrombosis of left tibial vein; N95.1 Menopausal and female climacteric states; Z20.822 Contact with and (suspected) exposure to COVID-19; Z79.890 Hormone replacement therapy; Z87.891 Personal history of nicotine dependence; Z79.899 Other long term (current) drug therapy
CPT/HCPCS: 36415; 71045; 71275; 80053; 81001; 83735; 83880; 84484; 84702; 85025; 85027; 85379; 85610; 85730; 87635; 93306; 93970; 99285; J1643; Q9957; Q9967

== ENCOUNTER → 2023-05-08 11:14 | Outpatient (BNV) | payer OTHER, SELFPAY | PROVIDERS: PCP Nurse Practitioner Family; Visit Provider Internal Medicine | DX: I26.99 Other pulmonary embolism without acute cor pulmonale (principal) | CPT/HCPCS: 99213; 99214 ==

== ENCOUNTER 2024-05-04 05:50 | Emergency (ER) | payer OTHER, SELFPAY ==
--- NOTE | 2024-05-04 | ECG_ITS ---
Test Reason : CHEST PAIN Blood Pressure : / mmHG Vent. Rate : 068 BPM Atrial Rate : 068 BPM P-R Int : 150 ms QRS Dur : 082 ms QT Int : 448 ms P-R-T Axes : 050 -02 033 degrees QTc Int : 476 ms Normal sinus rhythm with sinus arrhythmia Premature ventricular complexes Low voltage QRS Borderline ECG No previous ECGs available Referred By: Generic ED Physician Electronically Signed By:JUANITO PAYNE
--- NOTE | ~2024-05-04 | XR_ITS ---
EXAMINATION: XR CHEST CLINICAL INFORMATION: Chest pain COMPARISON: Chest x-ray and CTA chest April 08, 2023 TECHNIQUE: 2 views of the chest were obtained. FINDINGS: Cardiac silhouette is normal in size. The lungs are well aerated. There is no lobar consolidation. No pleural effusion or pneumothorax. No acute osseous abnormality. XR/XR chest 2V IMPRESSION: No acute pulmonary pathology.
[2024-05-04 05:53] VITALS: BP 100/62; PULSE 66; RESP 12; TEMP 36.5; O2SAT 96; BMI 27.0
[2024-05-04 06:20] LABS: MANUAL DIFF FLAG NO
[2024-05-04 06:31] LABS: Basophils Percent Auto 0.6 % (0-2); Eosinophils Absolute Auto 0.3 X10*3/uL (0.0-0.4); Hematocrit 39.6 % (37.0-47.0); Hemoglobin 13.5 g/dl (12.0-16.0); Imm Gran Abs Auto 0.02 X10*3/uL (0.00-0.03); Imm Gran Pct Auto 0.3 % (0.0-0.4); Lymphocytes Absolute Auto 2.3 X10*3/uL (1.2-4.9); Lymphocytes Percent Auto 37.2 % (20-40); Mean Corpuscular HGB Conc 34.1 g/dl (31.0-35.0); Mean Corpuscular Hemoglobin 35.2 pg (27.0-33.0); Mean Corpuscular Volume 103.1 fL (80.0-98.0); Mean Platelet Volume 10.1 fL (9.4-12.3); Monocytes Absolute Auto 0.6 X10*3/uL (0.1-1.2); Monocytes Percent Auto 9.2 % (2-11); Neutrophils Percent Auto 48.7 % (45-73); Platelet Count 262 X10*3/uL (160-400); Red Blood Count 3.84 X10*6/uL (4.20-5.50); Red Cell Distribution Width 12.7 % (11.0-16.0); White Blood Count 6.2 X10*3/uL (4.8-10.8)
[2024-05-04 06:37] LABS: Alanine Aminotransferase 17 U/L (0-31); Alkaline Phosphatase 67 U/L (39-117); Anion Gap 12 (12-20); Aspartate Amino Transferase 17 U/L (5-31); Bilirubin Total 0.3 mg/dL (0.0-1.0); Blood Urea Nitrogen 11 mg/dL (9-16); Calcium 9.4 mg/dL (8.4-10.2); Carbon Dioxide 27 mmol/L (22-29); Chloride 108 mmol/L (96-108); Creatinine Clr Calc Pharmacy 78.6; Estimated Glomerular Filt Rate > 60; Glucose Random 102 mg/dL (60-115); Potassium 3.7 mmol/L (3.3-5.1); Sodium 143 mmol/L (135-145); Total Protein 7.4 g/dL (6.5-8.0)
[2024-05-04 06:44] LABS: Troponin-I High Sensitivity < 2.7 ng/L (<3.5-17.0)
[2024-05-04 07:17] VITALS: BP 109/60; PULSE 64; RESP 16; O2SAT 99
--- NOTE | 2024-05-04 07:19 | PC.NURSE ---
Reports chest pains since around mid March, called to try to see her PCP who advised she come to ER. Pt describes pain as burning on right side of chest, constant, did have one episode of vomiting last Sunday. Reports pain does worsen with movement sometimes. Denies fever, ABD pain, SOB, recent illnesses. Alert and oriented, breathing even and unlabored, skin warm and dry. VSS, pt NSR on bedside ruffling hemmer automatic.
--- NOTE | 2024-05-04 08:05 | ED_ITS ---
HPI - Chest Pain General Chief Complaint: Chest Pain Stated Complaint: chest pains for a couple weeks Time Seen by Provider: 05/04/24 07:47 Source: patient and RN notes reviewed Mode of arrival: ambulatory Limitations: no limitations History of Present Illness ED Provider: Kaykay Ji PA-C HPI narrative: This is a 53-year-old female, with a past medical history of pulmonary embolism previously on Eliquis thought to be provoked by estrogen use, who presents emergency department with chest discomfort x2 weeks, now constant since Sunday. Patient states that she has had burning/pressure in her chest which is now constant. Patient initially thought several weeks ago she believes that she over exerted herself at the gym however states that now the pain has become constant. She has a history of a pulmonary embolism last year and was on Eliquis. She states that she was told that it was likely due to estrogen use, did not have any further workup. She was discontinued off Eliquis. She denies any fevers, chills, shortness of breath, current nausea, vomiting or diarrhea. Denies taking any medications at home to treat her current symptoms. She states that the current pain that she has does not feel typical of the pulmonary embolism she had last year. She denies any recent surgeries, hospitalizations, travel. She is a nonsmoker. Denies any other complaints or concerns at this time. MD complaint: chest pain Pertinent past history: other (Pulmonary embolism) Onset (ago): week(s) Timing of current episode: constant Prior episodes: Yes Pain location: substernal, left chest and right chest Pain radiation: none Severity: moderate Quality: aching Relieving factors: nothing Exacerbating factors: nothing Context: history of DVT/PE Risk Factors Coronary artery disease risk factors: none Thoracic aortic dissection risk factors: none Pulmonary embolism risk factors: history of deep vein thrombosis Related Data Home Medications ?Medication ?Instructions ?Recorded ?Confirmed calcium carbonate 600 mg-vitamin 1 tab PO DAILY 04/08/23 11/06/23 D3 5 mcg (200 unit) tablet multivitamin 1 tab PO DAILY 04/08/23 11/06/23 Effexor XR 37.5 mg PO DAILY 11/06/23 11/06/23 Previous Rx's ?Medication ?Instructions ?Recorded apixaban 5 mg tablet (Eliquis) 10 mg (2 x 5 mg) PO BID #54 tabs 04/10/23 Allergies Allergy/AdvReac Type Severity Reaction Status Date / Time No Known Allergies Allergy Unverified 05/04/24 06:01 [No Known Allergies*] Review of Systems 2 Review of Systems: Yes all other systems are reviewed and are negative Constitutional: Constitutional: Reports as per [facility] Past Medical History Attestation statement: The following information was validated with the patient. Surgical History History of tubal ligation H/O partial thyroidectomy Family History Family History Mother Waldenstrom's disease Father Hyperlipemia Skin cancer Prostate cancer Bladder cancer Social History Social History Household Members: Spouse and Family Housing: House Do you presently have visiting nurse or other home services: No Alcohol intake: never Patient Tobacco Use Status: Never used Tobacco Smoked in Last 30 Days: No Use of substances other than those prescribed or required for medical reasons: No Advance Directives: Yes Advance Directives on File: Yes Advance Directives Date on File: 04/11/23 Do you have a plan to hurt others: No Plan Patient : No service: No Current occupational status: employed Physical Exam 2 Vital Signs: Vital Signs: Last Vital Signs Temp 98.1 F 05/04/24 09:45 Pulse 55 05/04/24 09:45 Resp 16 05/04/24 09:45 BP 112/69 05/04/24 09:45 Pulse Ox 98 05/04/24 09:45 O2 Del Method Room Air 05/04/24 09:45 BMI result Body Mass Index 27.0 Const: General: cooperative, comfortable and no acute distress O rientation/consciousness: patient oriented x3 Limitations: no limitations HEENT: Head: Yes normal to inspection, Yes normocephalic and Yes atraumatic Ears: hearing grossly normal bilaterally General nose exam: Normal external nose present Face and sinus: Yes normal facial exam Mouth: Normal oral and palatal mucosa present, oropharynx normal and moist mucous membranes Throat: Yes posterior oropharynx normal Eyes: General: appearance normal, both eyes and all related structures E yelids: Yes eyelids normal Conjunctivae: conjunctivae normal Sclerae: s clerae normal Pupils: Equal, round and reactive pupils present EOM: EOMs intact bilaterally Neck: Neck: Yes normal visual inspection, Yes full ROM and Yes no lymphadenopathy Lymphatic: no lymphadenopathy noted Chest: Other: Mild tenderness palpation along the anterior chest wall. No crepitus or subcutaneous emphysema. No overlying skin changes to chest wall. Chest palpation & inspection: normal inspection of the chest Resp: Effort & Inspection: normal respiratory effort and able to speak in complete sentences Auscultation: clear to auscultation bilaterally, no crackles, no rales, no rhonchi and no wheezes Cardio: Rate: regular rate Rhythm: regular rhythm Heart sounds: S1 normal heart sound present and S2 normal heart sound present GI: Inspection: Yes normal to inspection Skin: General skin exam: no rashes or lesions noted Trauma: no lacerations or abrasions Wounds: no wounds Neuro: General: patient oriented x3 and moves all extremities Cranial nerves: Yes Equal, round and reactive pupils present Extrem: General: Yes normal to inspection Right upper extremity: normal to inspection Left upper extremity: normal to inspection Right lower extremity: normal to inspection Left lower extremity: normal to inspection Course Reevaluation(s) Reevaluation #1: D-dimer negative, 2nd troponin pending. Will order chest x-ray, patient remains comfortable and stable. Time: 08:48 Reevaluation #2: Second troponin negative. Chest x-ray unremarkable. Labs within normal limits. Patient has a reassuring workup today. She has a heart score of 1. She has no other risk factors, does not seem to be ACS related. Patient's pain is reproducible on examination, this may be attributed to a costochondritis like picture. Discussed findings with patient, she will follow-up with her primary care physician. She was given return precautions. Patient stable for discharge. Time: 09:14 Medical Decision Making Medical Decision Making MDM Narrative: This is a 53-year-old female, with a history of pulmonary embolism last year previously on Eliquis, which has since been discontinued, who presents emergency department with complaints of chest discomfort for several weeks, now constant. She did have 1 episode of nausea vomiting on Sunday, no other episodes. On arrival, vital signs within normal limits. She has under no acute distress, lungs are clear to auscultation bilaterally. He has not hypoxic or tachycardic. Given prior history of pulmonary embolism, will obtain D-dimer. Differential diagnoses include ACS, costochondritis, pneumonia-unlikely, PE, musculoskeletal pain. Plan: Labs, EKG, D-dimer, +/- CXR/CTA Differential Diagnosis Differential Diagnoses: The differential diagnosis associated with the presentation includes See above Admission/Observation Consideration of admission/observation: Escalation of care including admission/observation considered Lab Data MDM Lab Attestation statement: I reviewed the patient's lab results. No leukocytosis, stable H&H, chemistry within normal limits, troponin x2 negative. D-dimer less than 150, negative 05/04/24 06:15 05/04/24 06:15 Labs: Lab Results 05/04/24 05/04/24 Range/Units 06:15 08:32 WBC 6.2 (4.8-10.8) X10*3/uL RBC 3.84 L (4.20-5.50) X10*6/uL Hgb 13.5 (12.0-16.0) g/dl Hct 39.6 (37.0-47.0) % MCV 103.1 H (80.0-98.0) fL MCH 35.2 H (27.0-33.0) pg MCHC 34.1 (31.0-35.0) g/dl RDW 12.7 (11.0-16.0) % Plt Count 262 (160-400) X10*3/uL MPV 10.1 (9.4-12.3) fL Immature Gran % (Auto) 0.3 (0.0-0.4) % Neut % (Auto) 48.7 (45-73) % Lymph % (Auto) 37.2 (20-40) % [place] % (Auto) 9.2 (2-11) % Eos % (Auto) 4.0 (0-4) % Baso % (Auto) 0.6 (0-2) % Lymph # (Auto) 2.3 (1.2-4.9) X10*3/uL [place] # (Auto) 0.6 (0.1-1.2) X10*3/uL Eos # (Auto) 0.3 (0.0-0.4) X10*3/uL Baso # (Auto) 0.0 (0.0-0.2) X10*3/uL Abs Immat Gran (auto) 0.02 (0.00-0.03) X10*3/uL Absolute Neuts (auto) 3.0 (2.0-8.3) x10*3/uL Absolute Nucleated RBC 0.000 (0.0-0.012) X10*3/uL Nucleated RBC % (auto) 0.0 (0.0-0.2) /100WBC D-Dimer High Sensitivty < 150 NG/ML Sodium 143 (135-145) mmol/L Potassium 3.7 (3.3-5.1) mmol/L Chloride 108 (96-108) mmol/L Carbon Dioxide 27 (22-29) mmol/L Anion Gap 12 (12-20) BUN 11 (9-16) mg/dL Creatinine 0.79 (0.5-1.4) mg/dL Estim Creat Clear Calc 78.6 Estimated GFR > 60 Random Glucose 102 (60-115) mg/dL Calcium 9.4 (8.4-10.2) mg/dL Total Bilirubin 0.3 (0.0-1.0) mg/dL AST 17 (5-31) U/L ALT 17 (0-31) U/L Alkaline Phosphatase 67 (39-117) U/L Troponin I High Sens < 2.7 D < 2.7 (<3.5-17.0) ng/L Total Protein 7.4 (6.5-8.0) g/dL Albumin 4.0 (3.5-5.0) g/dL Independent Interpretation I performed an independent interpretation of an: EKG and Plain X-Ray Interpretation: EKG normal sinus rhythm with sinus arrhythmia, with PACs, ventricular rate of 68 beats per minute, QT QTC 448, 476, no ST elevation or depression. I reviewed the chest x-ray and agree with the radiology report, no consolidation seen. Radiology Impression Discussion of test interpretation with radiology: I have reviewed the radiologist's reading. Radiologist Impression: [address] [id number] XRay Report Signed Patient: Patricia Nieto MR#: [id number] : 1970 Acct:[id number] Age/Sex: 53 / F ADM Date: 05/04/24 Loc: HO.ED Attending Dr: Ordering Physician: Kaykay Ji Date of Service: 05/04/24 Procedure(s): XR chest 2V Accession Number(s): [id number] cc: Eliza Jimenez NP; Kaykay Ji~ EXAMINATION: XR CHEST CLINICAL INFORMATION: Chest pain COMPARISON: Chest x-ray and CTA chest April 08, 2023 TECHNIQUE: 2 views of the chest were obtained. FINDINGS: Cardiac silhouette is normal in size. The lungs are well aerated. There is no lobar consolidation. No pleural effusion or pneumothorax. No acute osseous abnormality. XR/XR chest 2V IMPRESSION: No acute pulmonary pathology. Dictated By: Colten Lozano MD External Record Review External record reviewed: Inpatient record, Office record, Outpatient record, Prior outpatient labs, Prior outpatient radiology, Primary care record and Outside ED record Scores Heart Score History: -0- slightly suspicious ECG: -0- normal Age: -1- >45 - <65 Risk factory: -0- no risk factors known Troponin: -0- < or = normal limit Score: 1 Risk: 1.7% Discharge Plan Discharge Clinical Impression: Chest pain Qualifiers: Chest pain type: unspecified Qualified Code(s): R07.9 - Chest pain, unspecified Patient Disposition: Home, Self-Care Instructions: Chest Pain (DC) Additional Instructions: You were seen in the emergency department due to chest pain. Your blood work was reassuring today. Your D-dimer was negative. Your EKG was reassuring. Your chest x-ray was normal. It is unclear what is causing your symptoms however this likely is musculoskeletal in nature. You may take [id number] ibuprofen and or Tylenol as needed for pain. Please rest, drink plenty of fluids, and follow-up with your primary care physician. If any new or worsening symptoms occur including but not limited to worsening pain, shortness of breath, please return for re-evaluation. I hope you feel better soon! Prescriptions: No Action multivitamin Tablet 1 tab PO DAILY calcium carbonate-vitamin D3 600 mg-5 mcg (200 unit) Tablet 1 tab PO DAILY Eliquis 5 mg Tablet 10 mg PO BID Qty: 54 0RF Rx Instructions: please take 2 tablets Eliquis(10 mg) by mouth twice daily until 04/16/23 then switch to 1 tablets Eliquis(10 mg) by mouth twice daily. Effexor XR 37.5 mg PO DAILY Interventions: ED Discharge Assessment Last Done: 05/04/24 09:45 Discharge Date/Time: 05/04/24 09:46 Print Language: Azeri
[2024-05-04 08:46] LABS: D Dimer High Sensitivity < 150 NG/ML
[2024-05-04 08:58] LABS: Troponin-I High Sensitivity < 2.7 ng/L (<3.5-17.0)
[2024-05-04 09:45] VITALS: BP 112/69; PULSE 55; RESP 16; TEMP 36.7; O2SAT 98
== END 2024-05-04 09:46 | disposition home or self-care (01) ==
PROVIDERS: Physician Assistant Medical; Emergency Provider Emergency Medicine; PCP Nurse Practitioner Family
DX: R07.89 Other chest pain (principal); R11.2 Nausea with vomiting, unspecified
CPT/HCPCS: 36415; 71046; 80053; 84484; 85025; 85379; 93005; 99283; 99285

== ENCOUNTER → 2024-05-04 05:52 | Outpatient (BNV) | payer OTHER, SELFPAY | PROVIDERS: Emergency Provider Emergency Medicine; PCP Nurse Practitioner Family; Visit Provider Internal Medicine | DX: R94.31 Abnormal electrocardiogram [ECG] [EKG] (principal) | CPT/HCPCS: 93010 ==

== ENCOUNTER 2025-02-03 08:14 | Emergency (ER) | payer OTHER, SELFPAY ==
[2025-02-03 08:26] VITALS: BP 117/87; PULSE 62; RESP 19; TEMP 36.6; O2SAT 98; BMI 30.2
[2025-02-03 08:55] LABS: IDNOW Serial# 58CA691E; Strep A Nucleic Acid Negative (Negative)
[2025-02-03 09:28] LABS: Influenza A PCR NEGATIVE (Negative); Influenza B PCR NEGATIVE (Negative); Resp Syncy Virus RNA Qual PCR NEGATIVE (Negative); SARS COV2 PCR INHOUSE NEGATIVE (Negative)
--- NOTE | 2025-02-03 10:39 | ED_ITS ---
HPI - General Adult General Chief complaint: General Medical Stated complaint: Sore throat Time Seen by Provider: 02/03/25 10:38 Source: patient, RN notes reviewed and old records reviewed Mode of arrival: ambulatory Limitations: no limitations History of Present Illness ED Provider: Trav RAO narrative: Patient is a 54-year-old female presenting to the ED with complaint of sore throat for the past few weeks. States pain has worsened over past few days, is somewhat worse on the right. Denies fevers. Denies difficulty swallowing. MD complaint: sore throat Onset (ago): day(s) Related Data Home Medications ?Medication ?Instructions ?Recorded ?Confirmed calcium 600 mg (as 1 tab PO DAILY 04/08/23 11/06/23 carbonate)-vitamin D3 5 mcg (200 unit) tablet multivitamin 1 tab PO DAILY 04/08/23 11/06/23 Effexor XR 37.5 mg PO DAILY 11/06/23 11/06/23 Previous Rx's ?Medication ?Instructions ?Recorded apixaban 5 mg tablet (Eliquis) 10 mg (2 x 5 mg) PO BID #54 tabs 04/10/23 Allergies Allergy/AdvReac Type Severity Reaction Status Date / Time No Known Allergies Allergy Verified 02/03/25 08:27 [No Known Allergies*] Review of Systems Review of Systems: As per HPI Yes all other systems are reviewed and are negative Constitutional: Constitutional: Reports as per HPI [facility] Past Medical History Surgical History History of tubal ligation H/O partial thyroidectomy Family History Family History Mother Waldenstrom's disease Father Hyperlipemia Skin cancer Prostate cancer Bladder cancer Social History Social History Household Members: Spouse and Family Housing: House Do you presently have visiting nurse or other home services: No Alcohol intake: never Patient Tobacco Use Status: Never used Tobacco Advance Directives Date on File: 04/11/23 service: No Current occupational status: employed Physical Exam ED Vital Signs: Vital Signs - 24 hr 02/03/25 08:26 Temperature 98 F Pulse Rate 62 Respiratory Rate 19 Blood Pressure 117/87 Pulse Oximetry 98 Oxygen Delivery Method Room Air BMI result Body Mass Index 30.2 Vital signs have been reviewed and appear to be correct. Blood pressure normal. Heart rate normal. Respiratory rate normal. Temperature normal. Oxygen saturation normal. Const General: cooperative, healthy appearing and no acute distress Orientation/consciousness: oriented to person, oriented to place, oriented to time and patient oriented x3 Limitations: no limitations HENMT Head: Yes normocephalic and Yes atraumatic Ears: external ears normal General nose exam: Normal external nose present Face and sinus: Yes face symmetric Mouth: Normal oral and palatal mucosa present, lip normal, tongue normal, oropharynx normal, moist mucous membranes, no audible dysphonia, no drooling, no trismus and No restricted motion Throat: Yes uvula midline, Yes abnormal tonsil (erythema, no edema or exudate), No peritonsillar mass and No uvular edema Eyes Pupils: Equal, round and reactive pupils present Neck Neck: Yes normal visual inspection, Yes no lymphadenopathy and Yes supple Resp Effort & Inspection: normal respiratory effort and able to speak in complete sentences Auscultation: clear to auscultation bilaterally Cardio Rate: regular rate Rhythm: regular rhythm Heart sounds: S1 normal heart sound present and S2 normal heart sound present GI Palpation (GI): Soft to palpation and nontender Auscultation: normoactive bowel sounds General: Yes no CVA tenderness Back/Spine/Pelvis Back: no CVA tenderness Skin General skin exam: elasticity normal and turgor normal Neuro General: oriented to person, oriented to place, oriented to time, patient oriented x3, moves all extremities, no focal motor deficits and CN's II-XI intact bilaterally Cranial nerves: Yes Equal, round and reactive pupils present Cognition (Neuro): normal cognition Extrem General: Yes full ROM, Yes no pedal edema and Yes no calf tenderness Psych Mental Status: mental status grossly normal Affect: normal affect Thought process: Normal thought process present Medical Decision Making Medical Decision Making MDM Narrative: Patient is a 54-year-old female presenting to the ED with complaint of sore throat for the past few weeks. On exam patient is awake, A+Ox3, VS WNL, afebrile, normal neurological exam without focal deficits, physical exam findings as above. Given reported symptoms and physical exam findings, initial differential includes but is not limited to viral vs strep pharyngitis, other viral illness, covid, flu. Do not suspect [employer]. Strep and viral swabs negative. Results discussed with patient. Offered to test for mono, through shared decision making, patient declined. Return precautions discussed. Patient verbalized understanding of and agreement with plan. Differential Diagnosis Differential Diagnoses: The differential diagnosis associated with the presentation includes As per [facility] Lab Data [facility] Lab Attestation statement: I reviewed the patient's lab results. As per [facility] Labs: Lab Results 02/03/25 Range/Units 08:38 Influenza Type A (PCR) NEGATIVE (Negative) Influenza Type B (PCR) NEGATIVE (Negative) RSV RNA Qual (PCR) NEGATIVE (Negative) SARS-CoV-2 RNA (RT-PCR) NEGATIVE (Negative) S. pyogenes GrpA MARIKA Negative (Negative) External Record Review External record reviewed: Inpatient record, Office record and Outpatient record Discharge Plan Discharge Clinical Impression: Pharyngitis Patient Disposition: Home, Self-Care Instructions: Pharyngitis (ED), Viral Syndrome (ED) Additional Instructions: You were evaluated in the emergency department today for a sore throat. Your COVID, flu, RSV, and strep swabs were all negative. Your symptoms are likely related to a viral infection which will resolve on its own with time and rest. Be sure to drink adequate fluids. You can use Tylenol and ibuprofen per package directions as needed for discomfort. You can also gargle with warm salt water several times daily. Follow-up with your primary care provider this week. Return to the emergency department if you develop difficulty swallowing, worsening pain, shortness of breath, are unable to swallow your saliva, or any other concerning symptoms. Prescriptions: No Action multivitamin Tablet 1 tab PO DAILY calcium carbonate-vitamin D3 600 mg-5 mcg (200 unit) Tablet 1 tab PO DAILY Eliquis 5 mg Tablet 10 mg PO BID Qty: 54 0RF Rx Instructions: please take 2 tablets Eliquis(10 mg) by mouth twice daily until 04/16/23 then switch to 1 tablets Eliquis(10 mg) by mouth twice daily. Effexor XR 37.5 mg PO DAILY Stand Alone Forms: Work/School Release Print Language: Japanese
[2025-02-03 10:43] VITALS: BP 117/87; PULSE 62; RESP 19; TEMP 36.6; O2SAT 98
--- OUTSIDE RECORDS SUMMARY | 2025-02-03 12:49 | XMS_ITS | Patient Health Record ---
[facility] Address [address] [place] [address] Care Team Providers Care Pattern Hanger Name Role Phone Eliza Delcid Primary Care Provider Unavail able KellykazYuni Unavailable [phone] Allergies No Known Allergies Reason For Referral No Information Medications Medication SIG (Take, Route, Fr equency, Duration) Notes Start Date End Date Status Feldene 20 MG 1 capsule with food Orally Once a day for 30 day(s) 02/21/2023 Active Physical Therapy . . . 2-3x/week for 3-4 weeks Active Apri 0.15-30 MG-MCG 1 tablet Orally Once a day Active Social History Tobacco Use: Social History Observation Description Date Details (start date - stop date) Never Smoker NA - NA Tobacco Use/Smoking Question Answer Notes Are you a: nonsmoker Additional Findings: Tobacco Non-User Current no n-smoker Alcohol Screen Question Answer Notes Did you have a drink containing alcohol in the p ast year? No Points 0 Interpretation Negative Tobacco use other than smoking: Question Answer Notes Are you an other tobacco user? No Plan Of Treatment Pending Test Test Name Order Date X ray : Foot, left 3V 12/13/2022 X ray : Foot, left 3V 01/17/2023 X ray : Foot, left 3V 02/21/2023 [id number], [id number] INJECT TENDON ORIGIN/INSER T 01/17/2023 Insurance Providers Payer Name Payer Address Payer Phone Subscriber Number Group Number Insured Name Patient Relationship to Insured Coverage Start Date Coverage End Date [facility] [address] [place] [address] [phone] [id number] Robert Nieto Spouse - patient is the spouse of the insured Medical (General) History Medical History History ICD Code thyroid Chicken pox Surgical History Surgery Date(Month/Year) thyroidectomy, partial 2006 tubal ligation 2004
--- OUTSIDE RECORDS SUMMARY | 2025-02-03 12:49 | XMS_ITS | Clinical Summary ---
Author Organization [address] Address [address] [place] [address] Phone Care Team Providers Care Cost Manager Name Role Phone Ismael Wynne MD Primary Care Provider [phone] Surgical History Surgery Date Site/Laterality Comments VAGINAL DELIVERY PROCEDURE: [place] VAGINAL DELIVERY ONLY; COMMENT: x3 TUBAL LIGATION 2004 PROCEDURE: HISTORICAL TUBAL LIGATION OTHER SURGICAL HISTORY PROCEDURE: [place] THYROIDECT W/SUBSTERNAL SPLIT/TRANSTHORACIC Medical History Medical History Date Comments Pneumonia, organism unspecified(486) DX:Pneumonia, organism unspecified(486) Other specified personal his tory presenting hazards to health(V15.89) DX:Other specifie d personal history presenting hazards to health(V15.89) Thyroiditis, unspecified 2005 DX:Thyr oiditis, unspecified Macrocytosis without anemia 2012 DX:M acrocytosis without anemia Family History Medical History Relation Name Comments Hyperlipidemia Father Other cancer Maternal Grandfather liver Breast cancer Maternal Grandmother Glaucoma Mother Other: osteoporsis Mother Other cancer Paternal Grandfather melanom a Relation Name Status Comments Brother Alive Father Alive Maternal Grandfather Maternal Grandmother Mother Alive Paternal Grandfather Paternal Grandmother Sister 1 Alive Sister 2 Alive Son 1 [place] Alive Son 2 [place] Alive Son 3 [place] Alive Social History Tobacco Use Types Packs/Day Years Used Date Smoking Tobacco: Never Smokeless Tobacco: Never Alcohol Use Standard Drinks/Week Comments Not Currently 0 (1 standard drink = 0.6 oz pur e alcohol) Comments No Sex and Gender Information Value Date Recorded Sex Assigned at Female 08/30/2024 7:36 PM EDT Legal Sex Female 4:45 AM EST Gender Identity Female 08/30/2024 7:36 PM EDT Sexual Orientation Straight 08/30/2024 7: 36 PM EDT Obstetrics History Para Term AB IAB SAB Ectopic Multiple Livin g Live Births 3 3 3 3 Date Outcome GA Total Labor Labor/2nd/3rd Weight Sex Type Anes PTL Salome A1 A5 Name Clin Term Term Term Last Filed Vital Signs Vital Sign Reading Time Taken Comments Blood Pressure 111/51 03/11/2024 9:24 AM EDT Pulse 72 03/09/2023 2:46 PM EDT Temperature - - Respiratory Rate - - Oxygen Saturation - - Inhaled Oxygen Concentration - - Weight 71.1 kg (156 lb 12.8 oz) 03/11/2024 9:24 AM EDT Height 160 cm (5' 3 ) 03/11/2024 9:24 AM EDT Body Mass Index 27.78 03/11/2024 9:24 AM EDT Plan of Treatment Health Maintenance Due Date Last Done Comments Hepatitis A Vaccines (1 of 2 - Risk 2-dose series) 1991 Hepatitis B Vaccines (1 of 3 - 19+ 3-dose series) 1991 Cervical Cancer Screening: HPV 1993 Pneumococcal Vaccine: 50+ Years (1 of 1 - PCV) 2022 Colorectal Cancer Screening: Colonoscopy 10/07/2022 Depression Screening 10/07/2022 HIV Screening 10/07/2022 Hepatitis C Screening 10/07/2022 Social Influencers of Health Screening 10/07/2022 COVID-19 Vaccine ( season) 2024 07/25/2021, 11/05/2020, 10/15/2020 Breast Cancer Screening 10/15/2026 10/15/20 24, 10/08/2023, 10/03/2022, Additional history exists DTaP,Tdap,and Td Vaccines (3 - Td or Tdap) 06/26/2027 06/26/2017, 10/09/2007 Zoster Vaccines Completed 02/22/2024, 08/13/2023 Influenza Vaccine Completed 07/30/2024, , 08/15/2022, Additional history exists HIB Vaccines Aged Out No longer eligi ble based on patient's age to complete this topic HPV Vaccines Aged Out No longer eligi ble based on patient's age to complete this topic IPV Vaccines Aged Out No longer eligi ble based on patient's age to complete this topic MMR Vaccines Aged Out No longer eligi ble based on patient's age to complete this topic Meningococcal ACWY Vaccine Aged Out N o longer eligible based on patient's age to complete this topic Meningococcal B Vaccine Aged Out No l onger eligible based on patient's age to complete this topic Pneumococcal Vaccine: Pediatrics (0 to 5 Years) and At-Risk Patients (6 to 64 Years) Aged Out No longer eligible based on patient's age to complete this topic RSV Immunization Patients Under 20 months Aged Out No longer eligible based on patient's age to complete this topic Varicella Vaccines Aged Out No longer eligible based on patient's age to complete this topic Procedures Procedure Name Priority Date/Time Associated Diagnosis Comments MG MAMMO DIGITAL SCREENING W CARLOS BILAT Routine 10/15/2024 3:47 PM EST Encounter for screening mammogram for breast cancer from Last 3 Months or Most Recently Relevant to Health Maintenance Results * MG Mammo Digital Screening w Carlos bilat (10/15/2024 3:47 PM EST) Anatomical Region Laterality Modality Breast Bilateral Mammography 10/16/2024 8:47 AM EST Impressions 10/16/2024 8:50 AM EST BILATERAL BREASTS: Negative, no evidence of malignancy. Normal interval follow- up is recommended in 12 months. BREAST DENSITY: B - There are scattered areas of fibroglandular density. BI-RADS CATEGORY: 1 - NEGATIVE RECOMMENDATION: Screening bilateral mammogram is recommended in 1 year. Mammo Location: [facility], [address] [place] [address], [id number], . -------- FINAL REPORT -------- Dictated By: Nahomi Adhikari Dictated Date: 10/16/2024 08:47 ET Assigned Physician: Nahomi Adhikari Reviewed and Electronically Signed By: Nahomi Adhikari Signed Date: 10/16/2024 08:50 ET Workstation ID: [id number] Transcribed By: Self Edit Transcribed Date: 10/16/2024 08:47 ET Narrative 10/16/2024 8:50 AM EST STUDY: Bilateral screening mammography with tomosynthesis and CAD TECHNIQUE: Bilateral full-field digital screening mammography is obtained and read in conjunction with computer-aided detection. ??Tomosynthesis as well as 2-D C view imaging were obtained. ?? COMPARISON: Comparison made to multiple prior, most recent October 08, 2023, and most remote November 27, 2013. BILATERAL BREASTS: No significant masses, suspicious calcifications or other abnormalities are seen. Procedure Note Nahomi Adhikari MD - 10/16/2024 STUDY: Bilateral screening mammography with tomosynthesis and CAD TECHNIQUE: Bilateral full-field digital screening mammography is obtainedand read in conjunction with computer-aided detection. Tomosynthesis aswell as 2-D C view imaging were obtained. COMPARISON: Comparison made to multiple prior, most recent September, and most remote November 27, 2013. BILATERAL BREASTS: No significant masses, suspicious calcifications orother abnormalities are seen. IMPRESSION: BILATERAL BREASTS: Negative, no evidence of malignancy. Normal intervalfollow-up is recommended in 12 months. BREAST DENSITY: B - There are scattered areas of fibroglandular density. BI-RADS CATEGORY: 1 - NEGATIVE RECOMMENDATION: Screening bilateral mammogram is recommended in 1 year. Mammo Location: [facility], [address] [place] [address], [id number], . -------- FINAL REPORT -------- Dictated By: Nahomi Adhikari Dictated Date: 10/16/2024 08:47 ET Assigned Physician: Nahomi Adhikari Reviewed and Electronically Signed By: Nahomi Adhikari Signed Date: 10/16/2024 08:50 ET Workstation ID: [id number] Transcribed By: Self Edit Transcribed Date: 10/16/2024 08:47 ET us Self Referral [facility] IMG BI PROCEDURES Final Resu lt from Last 3 Months or Most Recently Relevant to Health Maintenance [place] [address] Care Teams Cost Manager Relationship Specialty Start Date End Date Ismael Wynne MD [address] [place] [address] [address] [place], [place] PCP - General 05/28/03
== END 2025-02-03 10:43 | disposition home or self-care (01) ==
PROVIDERS: Emergency Provider Emergency Medicine; PCP Nurse Practitioner Family
DX: J02.9 Acute pharyngitis, unspecified (principal); Z03.818 Encounter for observation for suspected exposure to other biological agents ruled out
CPT/HCPCS: 0241U; 87651; 99282; 99283